=== PATIENT | female | born 1945 | race Caucasian/White ===

== ENCOUNTER 2017-11-01 04:05 | Emergency (ER) | payer OTHER ==
[~2017-11-01] VITALS: Ht 152.4 cm; Wt 108.9 kg
[~2017-11-01 04:05] MED LIST: ASPIRIN81 M2 PO; BAYER CHEWABLE81 MG PO; BIOTIN2500 MCG PO; CALTRATE-600 W1 EACH; CARDIZEM CD 18180 M3; CENTRUM SILVER1 EAC4 PO; COLACE 100 MG100 MG PO; CYCLOBENZAPRINE; CYMBALTA60 MG; CYMBALTA60 MG PO; DILTIAZEM ER240 M1; FLEXERIL; HYDROCHLOROTHIA25 M1 PO; HYDROCHLOROTHIA25 M2 PO; HYDROCODON-ACE1 EAC7; HYDROCODONE-AP1 EAC6 PO; IBUPROFEN 600600 M1 PO; LEVOTHYROXIN0.025 MG; LEVOTHYROXIN0.125 M1 PO; LIORESAL 10 MG10 MG PO; LISINOPRIL; LISINOPRIL20 MG; MIRALAX17 GM PO; MOBIC15 MG PO; MORPHINE PO; MS CONTIN 30 MG30 M1 PO; NAPROXEN DELAY500 M1 PO; NAPROXEN SODIU220 M2 PO; NEURONTIN 300300 M1 PO; NORCO 10-325 T1 EACH PO; NORCO 5-325 TA1 EACH PO; POTASSIUM20 OR; PRINIVIL40 MG PO; PROZAC40 MG; REQUIP 1 MG TABL1 M1 PO; VICODIN; XARELTO20 MG PO; ZOFRAN4 MG PO
[2017-11-01] MEDS ORDERED: CEREFOLIN TABL1 EAC1 PO (04:21)
[2017-11-01] MEDS ORDERED: OSTERA TABLET1 EAC1 PO (04:21)
[2017-11-01] MEDS ORDERED: AUGMENTIN 875-1 EACH PO (04:55)
[2017-11-01 05:12] VITALS: BP 156/107
== END 2017-11-01 05:15 | disposition home or self-care (01) ==
LOC: M.ERS 04:05
DX: J02.9 Acute pharyngitis, unspecified (principal); I10 Essential (primary) hypertension; F32.9 Major depressive disorder, single episode, unspecified; M19.90 Unspecified osteoarthritis, unspecified site; Z90.710 Acquired absence of both cervix and uterus; Z88.8 Allergy status to other drugs, medicaments and biological substances

== ENCOUNTER → 2017-12-31 | Outpatient (CLI) | payer OTHER ==
[~2017-12-31] MED LIST changes: +AUGMENTIN 875-1 EACH PO; +CEREFOLIN TABL1 EAC1 PO; +OSTERA TABLET1 EAC1 PO
== END ==
LOC: M.ULTRA 07:27
DX: E04.1 Nontoxic single thyroid nodule (principal); E21.3 Hyperparathyroidism, unspecified; M81.0 Age-related osteoporosis without current pathological fracture; I10 Essential (primary) hypertension; E78.4 Other hyperlipidemia

== ENCOUNTER → 2018-01-12 | Outpatient (CLI) | payer OTHER | LOC: M.LAB 01-08 12:00 → M.CT 01-08 13:00 → M.LAB 08:00 → M.CT 09:00 | DX: E04.1 Nontoxic single thyroid nodule (principal); E21.3 Hyperparathyroidism, unspecified; E03.9 Hypothyroidism, unspecified; I10 Essential (primary) hypertension; M81.0 Age-related osteoporosis without current pathological fracture; E78.4 Other hyperlipidemia ==

== ENCOUNTER 2018-04-17 19:19 | Emergency (ER) | payer OTHER ==
[~2018-04-17] VITALS: Ht 152.4 cm; Wt 68.0 kg
[2018-04-17] MEDS ORDERED: KRILL OIL 5001 EACH PO (19:30)
[2018-04-17] MEDS ORDERED: TIROSINT25 MCG (19:31)
[2018-04-17] MEDS ORDERED: NORCO 7.5-3251 EACH PO (20:00)
[2018-04-17 20:40] VITALS: BP 177/97
[2018-04-20] MEDS ORDERED: NORCO 10-325 T1 EACH PO (10:13)
[2018-04-20] MEDS ORDERED: SYNTHROID50 MCG PO (10:15)
== END 2018-04-17 20:41 | disposition home or self-care (01) ==
LOC: M.ERS 19:19
DX: S52.591A Other fractures of lower end of right radius, initial encounter for closed fracture (principal); S52.691A Other fracture of lower end of right ulna, initial encounter for closed fracture; M41.9 Scoliosis, unspecified; I10 Essential (primary) hypertension; F32.9 Major depressive disorder, single episode, unspecified; G25.81 Restless legs syndrome; M19.90 Unspecified osteoarthritis, unspecified site; M79.7 Fibromyalgia; Z90.710 Acquired absence of both cervix and uterus; Z90.49 Acquired absence of other specified parts of digestive tract; Z86.718 Personal history of other venous thrombosis and embolism; W01.0XXA Fall on same level from slipping, tripping and stumbling without subsequent striking against object, initial encounter; Y93.89 Activity, other specified; Y92.89 Other specified places as the place of occurrence of the external cause; Y99.8 Other external cause status

== ENCOUNTER 2018-04-21 09:11 | Inpatient (IN) | payer OTHER ==
[~2018-04-21] VITALS: Ht 152.4 cm; Wt 110.7 kg
--- NOTE | ~2018-04-21 | OP ---
[address] [address] OPERATIVE REPORT Name: NITIN URBINA Room: [address]#: [id number] Admission: 04/21/18 Attend Phys: Harry Gonzales MD Discharge: 04/23/18 Date of : 41 Report #: [id number] THIS REPORT FOR: //name// CC: Rad Gonzales DATE OF SERVICE: 04/22/2018 PREOPERATIVE DIAGNOSIS: Right distal radius fracture, greater than 3 parts. POSTOPERATIVE DIAGNOSIS: Right distal radius fracture, greater than 3 parts. PROCEDURE: Open reduction and internal fixation of right distal radius fracture, greater than 3 parts. SURGEON: Rad Poe II, DO HOUSEKEEPER HEAD: TODD Green. ANESTHESIA: LMA. ESTIMATED BLOOD LOSS: Minimal. ANTIBIOTICS: Per operative record. DRAINS: None. COMPLICATIONS: None. CONDITION OF THE PATIENT: Stable to recovery room. DESCRIPTION OF PROCEDURE: The patient was taken to the operative suite and placed supine on the OR table and given appropriate anesthesia. The patient had a well-padded tourniquet applied to the upper extremity, which inflated to 250 mmHg after Esmarch exsanguination for the duration of procedure. The arm was sterilely prepped and draped. Surgery began by an incision of the flexor carpi radialis tendon on the right forearm. This was carried down through subcutaneous tissues. The fracture was then visualized with being in multiple comminuted parts, which extended around to the ulnar margin. These were manipulated back into place in an open reduction and then secured utilizing a K-wire. The appropriate size plate was then visualized with C-arm and selected. It was then held with K-wire onto the bone to check for appropriate volar tilt and radial inclination. Once this was found to be near anatomic, the plate was secured to the proximal shaft in the sliding hole and once again reduced in near anatomic fashion and at this time, the screws [place] [address] OPERATIVE REPORT Name: NITIN URBINA Room: [address] IN [facility].#: [id number] Admission: 04/21/18 Attend Phys: Harry Gonzales MD Discharge: 04/23/18 Date of : 41 Report #: [id number] distal and proximal portions to secure the fracture site. Final irrigation was then performed. Final images were taken of the C-arm showed excellent anatomic reduction and anatomic fixation of the distal radius fracture with multiple comminuted parts back into near anatomic position. Wound was then irrigated and closed utilizing a 2-0 Vicryl for the subcuticular layer and running Monocryl stitch for the skin. Dermabond and sterile dressing and a volar splint were then applied. Tourniquet was deflated, and the patient was transported to recovery room in stable condition. Counts were correct throughout the procedure. By: [id number] Poe II, DO /nt
[~2018-04-21 09:11] MED LIST changes: +KRILL OIL 5001 EACH PO; +NORCO 7.5-3251 EACH PO; +SYNTHROID50 MCG PO; +TIROSINT25 MCG
[2018-04-21 09:25] VITALS: BP 175/123
[2018-04-21 10:16] LABS: HEMATOCRIT 46.5 % (37.0-47.0); HEMOGLOBIN 15.5 gm/dL (12.0-15.0); MCH 29.4 pg (26.0-34.0); MCHC 33.4 g/dL (28.0-37.0); MCV 87.9 fL (80.0-100.0); MPV 8.5 fl. (7.2-11.1); RBC 5.29 mil/uL (4.20-5.00); RDW-CV 15.1 % (10.5-14.5)
[2018-04-21 10:23] LABS: CALCIUM 9.9 mg/dL (8.5-10.1); POTASSIUM 3.2 mmol/L (3.5-5.1)
[2018-04-21 10:27] LABS: ALBUMIN 3.2 g/dL (3.4-5.0); TOTAL BILIRUBIN 0.6 mg/dL (<0.1-1.0); TOTAL PROTEIN 6.9 g/dL (6.4-8.2)
--- NOTE | 2018-04-21 11:46 | NUR ---
Paged Dr. Gonzales for admission.
--- NOTE | 2018-04-21 11:47 | EKG ---
[place] [address] ELECTROCARDIOGRAM REPORT Name: NITIN URBINA Room: [facility]#: [id number] Admission: 04/21/18 Attend Phys: Rad Poe II Discharge: Date of : 41 Report #: [id number] THIS REPORT FOR: //name// Test Date: 2018-04-21 Test Time: 10:00:00 Pat Name: NITIN URBINA Department: Room: Gender: F Math Professor: : 1945 Requested By: Rad Poe Order Number: [id number] Reading MD: Altaf Norris Measurements Intervals M[place]ick Rate: 93 P: DC: QRS: 64 QRSD: 107 T: 55 QT: 347 QTc: 432 Interpretive Statements Atrial fibrillation Borderline T wave abnormalities Electronically Signed On 04-21-2018 11:47:22 SCHOOL STANDARDS COACH by Altaf Norris [email or web address] <ELECTRONICALLY SIGNED> By: Altaf Norris MD, [facility] 04/21/18 1147 1000 [facility] Altaf Norris MD, FACC /EPI
--- NOTE | 2018-04-21 11:55 | NUR ---
Returned call from Dr. Gonzales, orders to admit to Tele floor given.
--- NOTE | 2018-04-21 12:20 | NUR ---
Pt c/o pain in right arm. Home med of Hydrocodone 10/325 1 1/2 tablets given PO for pain.
--- NOTE | 2018-04-21 12:45 | NUR ---
Dr. Gonzales called back and requeted a Cardiology consult be placed. Pt is in A-flutter on the moniter at this time.
--- NOTE | 2018-04-21 12:48 | NUR ---
Called Dr Mayer office and message left on Kaykay' answering machine and consult placed in computer.
[2018-04-21 13:00] VITALS: BP 133/96
--- NOTE | 2018-04-21 14:13 | NUR ---
Call returned by Dalila for Dr. Norris who stated he is already out of the hospital for today and might return tonght or will be early tomorrow morning. Explained to her situation of patient having new onset of A-fibb/flutter and is scheduled for Surgical fixation of her right radius fracture at 1530 if cleared by cardiology. Also told her of patients history of blood clots.
--- NOTE | 2018-04-21 14:20 | NUR ---
Pt taken up to room 229 via cart. Pt transfered to recliner with 1x assist. Report given to Krysten ALVARENGA.
--- NOTE | 2018-04-21 14:30 | NUR ---
PT ARRIVED TO UNIT VIA CART. PT ORIENTED TO ROOM,CALL LIGHT WITHIN REACH. PT SITTING IN CHAIR. RIGHT ARM ELEVATED ON PILLOW. DENIES PAIN. AFIB ON MONITOR
--- NOTE | 2018-04-21 18:20 | NUR ---
PT UP TO FLOOR THIS EVENING. PT REPORTS PAIN CONTROLLED WITH PO MEDS. SPLINT TO RUE INTACT. PT UP IN ROOM WITH STEADY GAIT. AFIB RATE CONTROLLED IN 80S. PLAN FOR OR IN AM
[2018-04-21 20:00] VITALS: BP 114/80
[2018-04-22] VITALS: BP 150/81
--- NOTE | 2018-04-22 02:23 | NUR ---
RECIEVED REPORT AND ASSUMED CARE AT 1900. FISH BAIT PICKER IN PLACE. VITAL SIGNS STABLE. PT UP ADLIB AND ON RA. PT HAS PAIN IN RIGHT ARM AND PRN PAIN MEDS GIVEN ORDERED. ASSESSMENT COMPLETED AND DISCUSSED PLAN OF CARE AND PT UNDERSTANDS. BED LOCKED AND CALL LIGHT WITHIN REACH. FALL PRECAUTIONS IN PLACE. HOURLY ROUNDING COMPLETED AND ALL NEEDS MET. NURSING WILL CONTINUE TO MONITOR.
[2018-04-22 04:00] VITALS: BP 145/84
[2018-04-22 05:01] LABS: HEMATOCRIT 41.9 % (37.0-47.0); HEMOGLOBIN 13.9 gm/dL (12.0-15.0); MCH 29.1 pg (26.0-34.0); MCHC 33.2 g/dL (28.0-37.0); MCV 87.7 fL (80.0-100.0); MPV 8.3 fl. (7.2-11.1); RBC 4.77 mil/uL (4.20-5.00); RDW-CV 15.1 % (10.5-14.5); WBC 6.6 thou/uL (4.0-11.0)
[2018-04-22 05:08] LABS: CALCIUM 9.7 mg/dL (8.5-10.1); MAGNESIUM 1.9 mg/dL (1.8-2.4); POTASSIUM 3.9 mmol/L (3.5-5.1)
[2018-04-22 08:00] VITALS: BP 150/104
--- NOTE | 2018-04-22 08:00 | NUR ---
ASSUMED CARE OF PT AT 0730. PT RESTING IN BED. PT A&0X4, PT COMPLAINS OF PAIN TO RIGHT WRIST BUT DENIES NEED FOR PAIN MEDICATION STATING PAIN MED BY NOC SHIFT THIS AM HELPED. 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 CARDIOLOGY CLEARED PT FOR SURGERY TODAY- PT TO HAVE ORIF OF RIGHT WRIST. CONSENT SIGNED AND PLACED IN FRONT OF CHART. RATE CONTROLLED IN THE 70'S-80'S. PT ON RA SAT UPPER 90'S. DENIES ANY SHORTNESS OF BREATH. PT UP SBA TO BATHROOM. URINALYSIS OBTAINED AND SENT TO LAB. PT NPO FOR SURGERY. PT GOAL FOR TODAY IS TO PAIN MGMT, SURGERY AND MONITOR EKG. AM ASSESSMENT CHARTED. MEDICATIONS PER JUL. PT REPOSITIONS SELF. HOURLY ROUNDING OBSERVED. BED IN LOW POSITION. CALL LIGHT WITHIN REACH. WILL CONTINUE PLAN OF CARE.
[2018-04-22 09:56] VITALS: BP 150/104
[2018-04-22 10:05] LABS: URINE BILIRUBIN NEGATIVE (Negative); URINE BLOOD NEGATIVE (Negative); URINE CLARITY CLEAR; URINE COLOR YELLOW; URINE GLUCOSE-RANDOM NEGATIVE (Negative); URINE KETONES NEGATIVE (Negative); URINE LEUKOCYTES-REFLEX NEGATIVE (Negative); URINE NITRITE-REFLEX NEGATIVE (Negative); URINE PROTEIN NEGATIVE (Negative); URINE UROBILINOGEN 0.2 E.U./dl (0.2-1.0)
[2018-04-22 11:37] VITALS: BP 163/88
--- NOTE | 2018-04-22 12:00 | NUR ---
MET WITH PT TO DISCUSS HOME SITUATION/DC PLANNING. PT LIVES ALONE, HAS SUPPORTIVE FAMILY AND IS INDEPENDENT. STATES FX HER WRIST AT HER DTR'S HOME GETTING PACKAGES OFF P[employer]CH. SHE HAS BEEN MANAGING AT HOME WITH IT PRIOR TO ADMIT AND DENIES NEEDS AFTER. HER DTRS CAN ASSIST HER. PT WILL HAVE TO GO HOME ON XARELTO, WAS ASKED TO CHECK COST BY DR HEDRICK. CALLED INTO BRIT XARELTO 20MG DAILY, COPAY IS $47/MONTH. SCRIPT IS ON HOLD. CM TO FOLLOW
--- NOTE | 2018-04-22 14:38 | 2DMMODE ---
[place] [address] 2 D/M-MODE ECHOCARDIOGRAM Name: NITIN URBINA Room: [address] ADM IN [facility]#: [id number] Admission: 04/21/18 Attend Phys: Harry Gonzales MD Discharge: Date of : 41 Date of Service: 04/22/18 1437 Report #: [id number] THIS REPORT FOR: //name// APPROVED REPORT Study performed: 04/22/2018 10:29:06 EXAM: Comprehensive 2D, Doppler, and color-flow Echocardiogram Patient Location: In-Patient Room #: 229 Status: routine BSA: 2.03 HR: 73 bpm BP: 150/104 mmHg Rhythm: Atrial Fibrillation Other Information Study Quality: Fair Indications Atrial Fibrillation 2D Dimensions IVSd: 13.50 (7-11mm) LVOT Diam: 19.58 (18-24mm) LVDd: 39.95 mm PWd: 11.58 (7-11mm) Ascending Ao: 34.03 (22-36mm) LVDs: 23.38 (25-40mm) Volumes Left Atrial Volume (Systole) LA ESV Index: 39.40 mL/m2 Aortic Valve AoV Peak Luis Enrique.: 1.68 m/s AO Peak Gr.: 11.34 mmHg LVOT Max P.54 mmHg AO Mean Gr.: 6.15 mmHg LVOT Mean P.83 mmHg LVOT Max V: 0.94 m/s AO V2 VTI: 27.31 cm LVOT Mean V: 0.62 m/s SERINA (VTI): 1.95 cm2 LVOT V1 VTI: 17.72 cm Mitral Valve MV Decel. Time: 202.01 ms MV PHT: 58.58 ms MVA (PHT): 3.76 cm2 [place] [address] 2 D/M-MODE ECHOCARDIOGRAM Name: NITIN URBINA Room: [address]#: [id number] Admission: 04/21/18 Attend Phys: Harry Gonazles MD Discharge: Date of : 41 Date of Service: 04/22/18 1437 Report #: [id number] TDI Medial E' Luis Enrique.: 0.12 m/s Lateral E' Luis Enrique.: 0.08 m/s Pulmonary Valve PV Peak Luis Enrique.: 0.82 m/s PV Peak Gr.: 2.68 mmHg Tricuspid Valve RAP Estimate: 5.00 mmHg TR Peak Gr.: 14.92 mmHg RVSP: 20.00 mmHg PA Pressure: 20.00 mmHg Left Ventricle The left ventricle is normal size. There is normal LV segmental wall motion. Mild concentric left ventricular hypertrophy. Left ventricular systolic function is normal. The left ventricular ejection fraction is within the normal range. LVEF is 60-65%. This study is not technically sufficient to allow evaluation of the LV diastolic function due to atrial fibrillation. Right Ventricle The right ventricle is normal size. The right ventricular systolic function is normal. Atria Left atrium is mildly dilated. Right atrium is mildly dilated. Aortic Valve The aortic valve is normal in structure. No aortic regurgitation is present. There is no aortic valvular stenosis. Mitral Valve There is mitral annular calcification. Trace mitral regurgitation. No evidence of mitral valve stenosis. Tricuspid Valve The tricuspid valve is normal in structure. Trace tricuspid regurgitation. No pulmonary hypertension. Pulmonic Valve The pulmonary valve is normal in structure. There is no pulmonic valvular regurgitation. Great Vessels The aortic root is normal in size. IVC is [place] [address] 2 D/M-MODE ECHOCARDIOGRAM Name: NITIN URBINA Room: [address]#: [id number] Admission: 04/21/18 Attend Phys: Harry Gonzales MD Discharge: Date of : 41 Date of Service: 04/22/18 1437 Report #: [id number] collapses >50% with inspiration. Pericardium There is no pericardial effusion. <Conclusion> Mild concentric left ventricular hypertrophy. LVEF is 60-65%. Left atrium is mildly dilated. Right atrium is mildly dilated. <ELECTRONICALLY SIGNED> By: Altaf Norris MD, FACC 04/22/18 1437 143 143 Altaf Norris MD, FACC /INF
--- NOTE | 2018-04-22 18:20 | NUR ---
NO ACUTE CHANGES THROUGHOUT SHIFT. REFER TO CHARTING. PT RETURNED FROM SURGERY AT APPROXIMATELY 1820. ORIF TO RIGHT WRIST COMPLETED. PT CURRENTLY EATING DINNER AT THIS TIME. DENIES ANY PAIN OR SHORTNESS OF BREATH AT THIS TIME. MEDICATIONS PER JUL. PT REPOSITIONS SELF. HOURLY ROUNDING OBSERVED. BED IN LOW POSITION. FALL PREACUTIONS IN PLACE. CALL LIGHT WITHIN REACH. WILL CONTINUE PLAN OF CARE.
[2018-04-22 20:00] VITALS: BP 146/103
[2018-04-23] VITALS (11 sets, daily range): BP systolic 154–190; BP diastolic 78–100
--- NOTE | 2018-04-23 06:32 | NUR ---
PATIENT PARTIALLY PROGRESSING TOWARDS GOALS: PATIENT'S PAIN IN RIGHT WRIST PARTIALLY RELIEVED WITH ICE PACK AND AND PO PAIN MEDICATION. PATIENT'S BLOOD PRESSURE ELEVATED AT TIMES BUT RETURNS WNL AT REST AND WITH PAIN RELIEF EFFORTS. HOURLY ROUNDING OBSERVED. CALL LIGHT WITHIN REACH
[2018-04-23] MEDS ORDERED: XARELTO20 MG PO (11:39)
--- NOTE | 2018-04-23 13:52 | NUR ---
MET WITH PT AND DTR, UPDATED PT AND DR HEDRICK ON COST OF XARELTO PT DENIES ANY DC NEEDS. [facility] HAS GOOD FAMILY SUPPORT.
[2018-04-23] MEDS ORDERED: KLOR-CON 1010 MEQ PO (14:03)
--- NOTE | 2018-04-23 16:29 | NUR ---
PATIENT IS ALERT AND ORIENTED TODAY VERY PLEASANT. UP AD TALI IN ROOM. VITAL SIGNS STABLE ON ROOM AIR. SOME PAIN THAT IS SOMEWHAT CONTROLLED BY ORAL PAIN MEDICATIONS. APPETITE IS GOOD. PATIENT IS BEING DISCHARGED TO HOME WITH HOME HEALTH. DISCHARGE INSTRUCTIONS AND PRESCRIPTIONS GIVEN TO PATIENT. QUESTIONS ANSWERED FOR PATIENT AND DAUGHTER, LEFT VIA WHEELCHAIR TO HOME WITH DAUGHTER.
--- NOTE | 2018-04-23 17:22 | CON ---
[address] [address] CONSULTATION Name: NITIN URBINA Room: [address] IN .R.#: [id number] Admission: 04/21/18 Attend Phys: Harry Gonzales MD Discharge: 04/23/18 Date of : 41 Report #: [id number] THIS REPORT FOR: //name// CC: Dr. Modesto Delaney Patient's Chart Rad Poe Modesto Gonzales DATE OF SERVICE: 04/21/2018 CARDIOLOGY CONSULTATION PRIMARY CARE PHYSICIAN: Dr. Modesto Delaney. HISTORY OF PRESENT ILLNESS: The patient is a 72-year-old single white female who I was asked to see in the hospital today after she was noted to be in atrial fibrillation. The patient has no previous history of heart disease. She has had no previous cardiac evaluation. She does have a long history of hypertension. She was doing well until 5 days ago, she was at her daughter's house when she slipped and fell on the driveway. She fractured her right arm. She was seen in the Emergency Room and sent home. A cast was placed. She returned today to undergo outpatient surgery on her broken arm. In preop surgery, she was noted to be in atrial fibrillation. Cardiology consultation was requested. She is not very active because of her large size. She is 5 feet tall and weighs 245 pounds. She notes she previously weighed up to 300 pounds. However, she denies history of myocardial infarction, chest pain, dyspnea on exertion. She does have occasional sweating spells. She also has occasional lightheadedness, but no palpitations or syncope. She denies a history of heart murmur. PAST MEDICAL HISTORY: She has had previous hemicolectomy for diverticular disease. She had a colostomy of several months. She has had several hernia surgeries. She has had a hysterectomy and cholecystectomy. She has hypertension. She has been told in the past she has elevated cholesterol. MEDICATIONS: Include Cymbalta, hydrochlorothiazide, hydrocodone, levothyroxine and lisinopril. ALLERGIES: She has intolerance to NEURONTIN. FAMILY HISTORY: Negative for heart disease. SOCIAL HISTORY: She is . Lives by herself in [place], [place]. 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 No [place] [address] CONSULTATION Name: NITIN URBINA Room: [address]#: [id number] Admission: 04/21/18 Attend Phys: Harry Gonzales MD Discharge: 04/23/18 Date of : 41 Report #: [id number] REVIEW OF SYSTEMS: She has had no history of sleep apnea. No history of stroke, asthma, peptic ulcer disease. She apparently had hepatitis B in the past. No kidney disease. She has a history of skin cancer removal. No psychiatric illness. PHYSICAL EXAMINATION: GENERAL: A large, elderly female lying in bed. She appeared in no distress. VITAL SIGNS: Showed a blood pressure of 160/90, pulse is 90 and irregular. She is afebrile. HEENT: She was anicteric, conjunctiva pink. Mucous membranes moist. NECK: Veins were difficult to assess due to obesity. No carotid bruits. Neck is supple. CHEST: Clear to auscultation. CARDIOVASCULAR: Irregular rhythm. No significant murmur. ABDOMEN: Obese. EXTREMITIES: Had no pitting edema. Dorsalis pedis pulse 1+ bilaterally. SKIN: Warm, dry. NEUROLOGIC: Nonfocal. LYMPH: No adenopathy. MUSCULOSKELETAL: No joint effusion. Her ECG from today appears to show atrial fibrillation with controlled ventricular response rate, nonspecific T-wave changes. The patient had a previous rhythm strip from 06/2015 that showed a sinus rhythm. ECG from 06/22 when she came in with the fractured arm actually showed a sinus bradycardia, occasional PAC. There appeared to be occasional junctional escape beat. Her workup, she had a previous echocardiogram in 2012 that showed ejection fraction of 60%. Her nuclear stress test in 2012 was performed using Lexiscan and showed no evidence of ischemia with an ejection fraction of 68%. Workup today, she actually had a portable chest x-ray that showed normal heart size, clear lung dominguez, dextroscoliosis, scattered granulomas. LABORATORY DATA: Today, sodium 141, potassium 3.2, creatinine 1.0. Liver function studies were normal. In the past, she had an LDL of 148. TSH today is 1.9. White blood cell count 8.0, hemoglobin 15.5. IMPRESSION AND RECOMMENDATIONS: 1. Atrial fibrillation. Asymptomatic. Certainly occurred since 4 days ago. I suspect the patient has sick sinus syndrome since the rate is controlled despite the fact she is on no medication to control the ventricular response rate. At this time, I would not recommend attempts at cardioversion. After surgery on her fractured arm, I would recommend anticoagulation. 2. Arm fracture. The patient appears to have no cardiac contraindication to surgery. I would recommend no further cardiac evaluation prior to surgery. 3. Hypertension. The patient has been on an JANET inhibitor and diuretic. 4. Hyperlipidemia. [address] [address] CONSULTATION Name: NITIN URBINA Room: [address] IN [facility]#: [id number] Admission: 04/21/18 Attend Phys: Harry Gonzales MD Discharge: 04/23/18 Date of : 41 Report #: [id number] 5. History of hepatitis B. 6. Morbid obesity. The patient is not very active. <ELECTRONICALLY SIGNED> By: Altaf Norris MD, FACC 04/23/18 1722 1803 1838Altaf Norris MD, FACC /nt
== END 2018-04-23 16:32 | disposition home health service (06) | DRG 511 ==
LOC: M.SUR 09:11 → M.TBA 12:45 → M.2W 12:45 → M.TBA 12:45 → M.SUR 13:10 → M.2W 14:36 → M.SUR 15:44 → M.2W 04-23 16:32
PROVIDERS: Orthopaedic Surgery; ADMIT Family Medicine
PROC: 0PSH04Z Reposition Right Radius with Internal Fixation Device, Open Approach (ICD-10-PCS; principal; 2018-04-22)
DX: S62.101A Fracture of unspecified carpal bone, right wrist, initial encounter for closed fracture (principal); Z68.42 Body mass index [BMI] 45.0-49.9, adult; I48.91 Unspecified atrial fibrillation; E78.5 Hyperlipidemia, unspecified; E66.01 Morbid (severe) obesity due to excess calories; G25.81 Restless legs syndrome; M19.90 Unspecified osteoarthritis, unspecified site; G89.29 Other chronic pain; M79.7 Fibromyalgia; E03.9 Hypothyroidism, unspecified; I10 Essential (primary) hypertension; Z93.3 Colostomy status; Z90.49 Acquired absence of other specified parts of digestive tract; Z88.8 Allergy status to other drugs, medicaments and biological substances; Z86.19 Personal history of other infectious and parasitic diseases; Z86.718 Personal history of other venous thrombosis and embolism; Z86.711 Personal history of pulmonary embolism; Z83.3 Family history of diabetes mellitus; Z80.1 Family history of malignant neoplasm of trachea, bronchus and lung; W01.0XXA Fall on same level from slipping, tripping and stumbling without subsequent striking against object, initial encounter; Y93.89 Activity, other specified; Y92.098 Other place in other non-institutional residence as the place of occurrence of the external cause; Y99.8 Other external cause status; Z79.899 Other long term (current) drug therapy

== ENCOUNTER → 2018-06-04 | Outpatient (CLI) | payer OTHER ==
[~2018-06-04] MED LIST changes: +KLOR-CON 1010 MEQ PO
== END ==
LOC: M.RAD 11:08
DX: Z12.31 Encounter for screening mammogram for malignant neoplasm of breast (principal)

== ENCOUNTER 2018-07-19 09:34 | Emergency (ER) | payer OTHER ==
[~2018-07-19] VITALS: Ht 162.6 cm; Wt 110.7 kg
[2018-07-19 12:15] VITALS: BP 151/99
== END 2018-07-19 12:16 | disposition home or self-care (01) ==
LOC: M.ERS 09:34
DX: S62.617A Displaced fracture of proximal phalanx of left little finger, initial encounter for closed fracture (principal); M25.561 Pain in right knee; M41.9 Scoliosis, unspecified; I10 Essential (primary) hypertension; F32.9 Major depressive disorder, single episode, unspecified; G25.81 Restless legs syndrome; I48.91 Unspecified atrial fibrillation; M19.90 Unspecified osteoarthritis, unspecified site; M79.7 Fibromyalgia; Z90.710 Acquired absence of both cervix and uterus; Z90.49 Acquired absence of other specified parts of digestive tract; Z88.8 Allergy status to other drugs, medicaments and biological substances; Z90.13 Acquired absence of bilateral breasts and nipples; Z86.718 Personal history of other venous thrombosis and embolism; W18.39XA Other fall on same level, initial encounter; Y92.89 Other specified places as the place of occurrence of the external cause; Y93.89 Activity, other specified; Y99.8 Other external cause status

== ENCOUNTER → 2018-08-02 | Outpatient (CLI) | payer OTHER | LOC: M.RAD 07-29 09:00 | DX: M85.89 Other specified disorders of bone density and structure, multiple sites (principal); E28.39 Other primary ovarian failure; Z78.0 Asymptomatic menopausal state; Z88.8 Allergy status to other drugs, medicaments and biological substances ==

== ENCOUNTER → 2019-02-28 | Outpatient (CLI) | payer OTHER ==
[~2019-02-28] MED LIST changes: +CARVEDILOL12.5 MG PO; +LORCET 5-325 M1 EACH PO
== END ==
LOC: M.LAB 12-21 09:18 → M.MRI 12-31 12:30 → M.LAB 14:00
DX: M47.12 Other spondylosis with myelopathy, cervical region (principal); M50.01 Cervical disc disorder with myelopathy, high cervical region; M46.02 Spinal enthesopathy, cervical region; G95.9 Disease of spinal cord, unspecified; E55.9 Vitamin D deficiency, unspecified; R53.83 Other fatigue; R90.82 White matter disease, unspecified; X58.XXXA Exposure to other specified factors, initial encounter

== ENCOUNTER → 2019-03-16 | Outpatient (CLI) | payer OTHER ==
[~2019-03-16] VITALS: Ht 157.5 cm; Wt 114.8 kg
[2019-03-16 15:59] LABS: ABSOLUTE BASOPHILS 0.1 thou/uL (0.0-0.2); ABSOLUTE EOSINOPHILS 0.3 thou/uL (0.0-0.7); ABSOLUTE LYMPHOCYTES 2.4 thou/uL (0.8-5.3); ABSOLUTE MONOCYTES 0.5 thou/uL (0.0-1.2); BASOPHILS 0.9 %; EOSINOPHILS 3.7 %; HEMATOCRIT 45.5 % (37.0-47.0); HEMOGLOBIN 15.2 gm/dL (12.0-15.0); LYMPHOCYTES 29.2 %; MCH 29.6 pg (26.0-34.0); MCHC 33.4 g/dL (28.0-37.0); MCV 88.5 fL (80.0-100.0); MONOCYTES 5.8 %; MPV 8.3 fl. (7.2-11.1); NUCLEATED RBCS 0 /100WBC; PLATELET COUNT* 240 thou/uL (150-400); POLYS 60.4 %; RBC 5.14 mil/uL (4.20-5.00); WBC 8.3 thou/uL (4.0-11.0)
[2019-03-16 16:09] LABS: CALCIUM 9.9 mg/dL (8.5-10.1); CREATININE 1.2 mg/dL (0.6-1.3); POTASSIUM 3.8 mmol/L (3.5-5.1)
[2019-03-16 16:17] LABS: ALBUMIN 3.7 g/dL (3.4-5.0); TOTAL BILIRUBIN 0.3 mg/dL (<0.1-1.0); TOTAL PROTEIN 7.5 g/dL (6.4-8.2)
[2019-03-16 17:03] VITALS: BP 169/89
--- NOTE | 2019-03-17 11:06 | EKG ---
[place] [address] ELECTROCARDIOGRAM REPORT Name: NITIN URBINA Room: [facility]#: [id number] Admission: 03/16/19 Attend Phys: Varun Joe MD Discharge: Date of : 41 Report #: [id number] THIS REPORT FOR: //name// ED Test Date: 2019-03-16 Test Time: 15:55:28 Pat Name: NITIN URBINA Department: Room: Gender: F Plush Dresser: [facility] : 1945 Requested By: Slick Glover Order Number: [id number] MD: Jaiden Nino Measurements Intervals Bryan Rate: 83 P: [place]: QRS: 70 QRSD: 100 T: -1 QT: 382 QTc: 449 Interpretive Statements Atrial fibrillation Borderline T abnormalities, inferior leads Compared to ECG 04/22/2018 08:29:23 No significant changes Electronically Signed On 03-17-2019 11:06:03 PRECISION FILER HAND by Jaiden Nino [email or web address] <ELECTRONICALLY SIGNED> By: Jaiden Nino MD, [facility] 03/17/19 1106 1555 1555 Jaiden Nino MD, FACC /EPI
== END ==
LOC: M.RAD 03:23 → M.PC 03:23 → M.ERS 03:23 → M.PC 14:30
PROVIDERS: Physician Assistant
DX: M17.11 Unilateral primary osteoarthritis, right knee (principal); I51.7 Cardiomegaly; M79.18 Myalgia, other site

== ENCOUNTER 2019-04-15 14:34 | Emergency (ER) | payer OTHER ==
[~2019-04-15] VITALS: Ht 152.4 cm; Wt 113.4 kg
[2019-04-15 14:51] VITALS: BP 124/89
[2019-04-15] MEDS ORDERED: PREDNISONE 20 M20 M1 PO ×2 (15:07→15:09)
== END 2019-04-15 15:19 | disposition home or self-care (01) ==
LOC: M.ERS 14:34
DX: M25.561 Pain in right knee (principal); I10 Essential (primary) hypertension; M19.90 Unspecified osteoarthritis, unspecified site; M79.7 Fibromyalgia; G89.29 Other chronic pain; G25.81 Restless legs syndrome; Z90.49 Acquired absence of other specified parts of digestive tract; Z88.8 Allergy status to other drugs, medicaments and biological substances

== ENCOUNTER → 2019-04-20 | Outpatient (CLI) | payer OTHER ==
[~2019-04-20] MED LIST changes: +PREDNISONE 20 M20 M1 PO
== END ==
LOC: M.PC 05:17
DX: M17.0 Bilateral primary osteoarthritis of knee (principal); M79.7 Fibromyalgia

== ENCOUNTER 2019-04-22 14:36 | Emergency (ER) | payer OTHER ==
[~2019-04-22] VITALS: Ht 152.4 cm; Wt 113.0 kg
[2019-04-22 16:24] LABS: CALCIUM 9.7 mg/dL (8.5-10.1); POTASSIUM 3.9 mmol/L (3.5-5.1)
[2019-04-22 16:57] VITALS: BP 131/83
--- NOTE | 2019-04-23 14:47 | EKG ---
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: : 1945 Requested By: Georgi Corral Order Number: [id number] MD: Jaiden Nino Measurements Intervals [place] Rate: 81 P: VT: QRS: 94 QRSD: 102 T: 32 QT: 369 QTc: 429 Interpretive Statements Atrial fibrillation Right axis deviation Compared to ECG 03/16/2019 15:55:28 Right-axis deviation now present T-wave abnormality no longer present Electronically Signed On 04-23-2019 14:47:35 CYANIDE POT TENDER by Jaiden Nino [email or web address] <ELECTRONICALLY SIGNED> By: Jaiden Nino MD, [facility] 04/23/19 1447 1557 1557 Jaiden Nino MD, FACC /EPI
== END 2019-04-22 16:58 | disposition home or self-care (01) ==
LOC: M.ERS 14:36
PROVIDERS: Emergency Medicine Emergency Medical Services
DX: I10 Essential (primary) hypertension (principal); M41.9 Scoliosis, unspecified; F32.9 Major depressive disorder, single episode, unspecified; G25.81 Restless legs syndrome; M19.90 Unspecified osteoarthritis, unspecified site; M79.7 Fibromyalgia; I48.91 Unspecified atrial fibrillation; Z86.718 Personal history of other venous thrombosis and embolism; Z90.49 Acquired absence of other specified parts of digestive tract; Z88.8 Allergy status to other drugs, medicaments and biological substances; Z90.710 Acquired absence of both cervix and uterus

== ENCOUNTER → 2019-04-27 | Outpatient (CLI) | payer OTHER | END | disposition home or self-care (01) | LOC: M.PC 05:27 | DX: M17.0 Bilateral primary osteoarthritis of knee (principal); M25.561 Pain in right knee; M25.562 Pain in left knee; I10 Essential (primary) hypertension; E78.00 Pure hypercholesterolemia, unspecified; M79.7 Fibromyalgia; F32.9 Major depressive disorder, single episode, unspecified; M19.90 Unspecified osteoarthritis, unspecified site; G89.29 Other chronic pain; I48.91 Unspecified atrial fibrillation; Z98.890 Other specified postprocedural states; Z86.711 Personal history of pulmonary embolism; Z86.718 Personal history of other venous thrombosis and embolism; Z98.0 Intestinal bypass and anastomosis status; Z90.710 Acquired absence of both cervix and uterus; Z88.8 Allergy status to other drugs, medicaments and biological substances; Z90.49 Acquired absence of other specified parts of digestive tract; Z79.01 Long term (current) use of anticoagulants ==

== ENCOUNTER → 2019-05-02 | Outpatient (CLI) | payer OTHER | END | disposition home or self-care (01) | LOC: M.PC 03:00 | DX: M17.0 Bilateral primary osteoarthritis of knee (principal); I10 Essential (primary) hypertension; I48.91 Unspecified atrial fibrillation; G89.29 Other chronic pain; M19.90 Unspecified osteoarthritis, unspecified site; F32.9 Major depressive disorder, single episode, unspecified; M79.7 Fibromyalgia; Z98.890 Other specified postprocedural states; Z98.0 Intestinal bypass and anastomosis status; Z90.710 Acquired absence of both cervix and uterus; Z88.8 Allergy status to other drugs, medicaments and biological substances; Z79.899 Other long term (current) drug therapy; Z90.49 Acquired absence of other specified parts of digestive tract; Z79.01 Long term (current) use of anticoagulants ==

== ENCOUNTER → 2019-05-09 | Outpatient (CLI) | payer OTHER | END | disposition home or self-care (01) | LOC: M.PC 04:55 | DX: M17.0 Bilateral primary osteoarthritis of knee (principal); M25.561 Pain in right knee; M25.562 Pain in left knee; I10 Essential (primary) hypertension; I48.91 Unspecified atrial fibrillation; E78.00 Pure hypercholesterolemia, unspecified; E66.01 Morbid (severe) obesity due to excess calories; Z98.890 Other specified postprocedural states; Z79.899 Other long term (current) drug therapy; Z98.0 Intestinal bypass and anastomosis status; Z90.710 Acquired absence of both cervix and uterus; Z90.49 Acquired absence of other specified parts of digestive tract; Z88.8 Allergy status to other drugs, medicaments and biological substances; Z79.01 Long term (current) use of anticoagulants ==

== ENCOUNTER 2019-07-04 18:28 | Inpatient (IN) | payer MEDICARE ==
[~2019-07-04] VITALS: Ht 157.5 cm; Wt 116.6 kg
[2019-07-04 19:01] VITALS: BP 138/115
[2019-07-04 19:43] LABS: INFLUENZA A ANTIGEN Negative (Negative); INFLUENZA B ANTIGEN Negative (Negative)
[2019-07-04 20:23] LABS: HEMATOCRIT 45.2 % (37.0-47.0); HEMOGLOBIN 15.5 gm/dL (12.0-15.0); MCH 30.2 pg (26.0-34.0); MCHC 34.2 g/dL (28.0-37.0); MCV 88.2 fL (80.0-100.0); MPV 8.2 fl. (7.2-11.1); NUCLEATED RBCS 0 /100WBC; PLATELET COUNT* 223 thou/uL (150-400); RBC 5.13 mil/uL (4.20-5.00); RDW-CV 14.1 % (10.5-14.5); WBC 12.6 thou/uL (4.0-11.0)
[2019-07-04 20:33] LABS: CALCIUM 9.8 mg/dL (8.5-10.1); CREATININE 1.3 mg/dL (0.6-1.3); POTASSIUM 3.9 mmol/L (3.5-5.1)
[2019-07-04 20:43] LABS: ALBUMIN 3.8 g/dL (3.4-5.0); TOTAL BILIRUBIN 0.7 mg/dL (<0.1-1.0); TOTAL PROTEIN 8.3 g/dL (6.4-8.2)
[2019-07-04 20:47] LABS: URINE BILIRUBIN NEGATIVE (Negative); URINE BLOOD 1+ (Negative); URINE CLARITY CLEAR; URINE COLOR YELLOW; URINE GLUCOSE-RANDOM NEGATIVE (Negative); URINE KETONES NEGATIVE (Negative); URINE LEUKOCYTES-REFLEX NEGATIVE (Negative); URINE NITRITE-REFLEX NEGATIVE (Negative); URINE PROTEIN NEGATIVE (Negative); URINE UROBILINOGEN 0.2 E.U./dl (0.2-1.0)
[2019-07-04 21:00] LABS: ABSOLUTE LYMPHOCYTES 1.3 thou/uL (0.8-5.3); ABSOLUTE NEUTROPHILS 10.7 thou/uL (1.6-8.1); PLATELET ESTIMATE ADEQUATE
[2019-07-04 21:01] LABS: ABSOLUTE EOSINOPHILS 0.4 thou/uL (0.0-0.7); ABSOLUTE MONOCYTES 0.3 thou/uL (0.0-1.2)
[2019-07-04 21:04] LABS: BACTERIA-REFLEX 1-9 Few /HPF (None Seen); CASTS None Seen /LPF (None Seen); CRYSTALS None Seen /LPF (None Seen); SQUAMOUS 0-3 Few /LPF (0-3); URINE RBC 3-10 Few /HPF (0-2); URINE WBC-REFLEX 0-5 Rare /HPF (0-5)
[2019-07-05] VITALS (7 sets, daily range): BP systolic 112–147; BP diastolic 58–98
--- NOTE | 2019-07-05 06:50 | NUR ---
RECEIVED REPORT FROM SUPERVISOR BROADLOOM DB AT 0045. PT ARRIVED TO UNIT AT 0100. NURSING ASSESSMENT COMPLETED AT START OF SHIFT. IVF INFUSING. PT VOICED NO CONCERNS AT START OF SHIFT. HIGH FALL PRECAUTIONS IN PLACE. CALL LIGHT WITHIN REACH. REAL ESTATE INTERN IN PLACE, TRACING AFIB. POSITIVE BLOOD CULTURES COMMUNICATED TO DR. ISAAC, NEW ORDERS RECEIVED.
[2019-07-05] MEDS ORDERED: KLOR-CON M2020 MEQ PO (07:08)
[2019-07-05] MEDS ORDERED: DULOXETINE HCL20 MG PO (07:09)
[2019-07-05] MEDS ORDERED: NORCO 10-325 T1 EACH PO (07:09)
--- NOTE | 2019-07-05 09:00 | NUR ---
ASSUMED CARE AFTER REPORT APPROX 0730. OX4, ABLE TO EXPRESS NEEDS TO STAFF. ASSESSMENT COMPLETE, DOCUMENTED. VS OBTAINED, DOCUMENTED. ASSISTANT TODDLER TEACHER IN PLACE, AFIB. PATIENT EXPRESSES DISTRESS IN MOANS, PATIENT STATES "I JUST FEEL AWFUL." C/O PAIN, NAUSEA. PRN MEDS GIVEN PER JUL. CALL LIGHT WITHIN REACH. HOURLY ROUNDING FOR SAFETY/PT NEEDS.
[2019-07-05 11:24] LABS: ABSOLUTE BASOPHILS 0.1 thou/uL (0.0-0.2); ABSOLUTE LYMPHOCYTES 0.9 thou/uL (0.8-5.3); ABSOLUTE MONOCYTES 0.7 thou/uL (0.0-1.2); ABSOLUTE NEUTROPHILS 11.9 thou/uL (1.6-8.1); BASOPHILS 0.8 %; EOSINOPHILS 0.3 %; HEMATOCRIT 39.3 % (37.0-47.0); LYMPHOCYTES 6.5 %; MCH 29.8 pg (26.0-34.0); MCHC 33.9 g/dL (28.0-37.0); MCV 87.8 fL (80.0-100.0); MONOCYTES 5.2 %; MPV 8.1 fl. (7.2-11.1); NUCLEATED RBCS 0 /100WBC; PLATELET COUNT* 207 thou/uL (150-400); POLYS 87.2 %; RBC 4.47 mil/uL (4.20-5.00); RDW-CV 14.3 % (10.5-14.5); WBC 13.7 thou/uL (4.0-11.0)
[2019-07-05 11:26] LABS: HEMOGLOBIN 13.3 gm/dL (12.0-15.0)
[2019-07-05 11:34] LABS: CALCIUM 9.2 mg/dL (8.5-10.1); CREATININE 1.1 mg/dL (0.6-1.3); POTASSIUM 3.5 mmol/L (3.5-5.1)
[2019-07-05 11:38] LABS: ALBUMIN 2.9 g/dL (3.4-5.0); MAGNESIUM 1.4 mg/dL (1.8-2.4); TOTAL BILIRUBIN 0.8 mg/dL (<0.1-1.0); TOTAL PROTEIN 6.8 g/dL (6.4-8.2)
--- NOTE | 2019-07-05 13:28 | NUR ---
Nutrition: Pt admitted with flu-like sx. She stated she is feeling better. RD received consult for "other." Wt: 255#, BMI 46.6. Regular diet is ordered. Pt stated she has been eating better (N/V CLINICAL EDUCATION CONSULTANT). H/o stoma removal, colon resection. BG 158, alb 2.9. RX noted. She stated her RN told her she is supposed to be NPO for a procedure, but dietary brought a tray anyway (orders are Regular diet) and pt did eat a little of it. She is hopeful to get procedure anyway today. She stated she doesn't eat as healthy as she should and wanted some info on general healthy eating. RD provided discussion and handouts on this. Pt satisfied with consult. Low nutrition risk.
--- NOTE | 2019-07-05 14:30 | NUR ---
Pt is A&O. Resides at home alone. Independent. Pt has a walker that she can use for mobility. Hx of [facility] HH. No hx of SNF. Pt's goal is home at dc, open to HH at nm if needed. Following.
--- NOTE | 2019-07-05 16:37 | EKG ---
[place] [address] ELECTROCARDIOGRAM REPORT Name: NITIN URBINA Room: [address] ADM [place] .R.#: [id number] Admission: 07/04/19 Attend Phys: Kuldeep Renteria Discharge: Date of : 41 Date of Service: 07/04/191957 Report #: [id number] THIS REPORT FOR: //name// [facility] ED Test Date: 2019-07-04 Test Time: 19:58:42 Pat Name: NITIN URBINA Department: Room: [facility] Gender: F Supervisor Braiding: ALEKS : 1945 Requested By: Rad Skaggs Order Number: [id number] MD: Altaf Norris Measurements Intervals Diana Rate: 120 P: ID: QRS: 92 QRSD: 103 T: -45 QT: 317 QTc: 448 Interpretive Statements Atrial fibrillation Nonspecific T abnormalities, inferior leads Compared to ECG 04/22/2019 15:57:46 rate increased Electronically Signed On 07-05-2019 16:35:59 CUSTOMS AGENT by Altaf Norris [email or web address] <ELECTRONICALLY SIGNED> By: Altaf Norris MD, FACC 07/05/19 1635 57 57 Altaf Norris MD, [facility] /EPI
--- NOTE | 2019-07-05 18:00 | NUR ---
PATIENT PAIN/NAUSEA RELIEVED WITH PRN MEDS. PATIENT ABLE TO REST THIS AFTERNOON AND STATES "I MUCH MORE COMFORTABLE."
[2019-07-06] VITALS (7 sets, daily range): BP systolic 107–166; BP diastolic 53–111
[2019-07-06 05:00] LABS: HEMATOCRIT 36.3 % (37.0-47.0); HEMOGLOBIN 12.1 gm/dL (12.0-15.0); MCH 29.9 pg (26.0-34.0); MCHC 33.4 g/dL (28.0-37.0); MCV 89.3 fL (80.0-100.0); MPV 8.1 fl. (7.2-11.1); RBC 4.07 mil/uL (4.20-5.00); RDW-CV 14.3 % (10.5-14.5); WBC 13.2 thou/uL (4.0-11.0)
[2019-07-06 06:12] LABS: CALCIUM 9.2 mg/dL (8.5-10.1); MAGNESIUM 1.5 mg/dL (1.8-2.4); POTASSIUM 3.7 mmol/L (3.5-5.1)
--- NOTE | 2019-07-06 06:40 | NUR ---
ASSUMED CARE OF PT AFTER REPORT AT 1930. PT A&OX3-4. APHASIA NOTED. PER PTS DAUGHTER APHASIA STARTED BEFORE ADMISSION. PTS DAUGHTER WAS CONCERNED ABOUT PT HAVING A HARD TIME EXPRESSING HERSELF. THIS NURSE REASSURED PTS DAUGHTER. FORGETFUL AT TIMES. PT ON RA. PT TRACING AFIB ON TELE. PT UP WITH 1-2 ASSIST. PT COMPLAINED OF ABDOMINAL PAIN-MEDS GIVEN PER JUL. NIH CHARTED. MAGNESIUM 1.5. ELECTROLYTE PROTOCOL IN PLACE. PT ABLE TO SLEEP WELL ON BED. CALL LIGHT WITHIN REACH.
[2019-07-07] VITALS: BP 100/63
[2019-07-07 04:48] VITALS: BP 100/63; BP 141/83
[2019-07-07 05:06] LABS: ABSOLUTE EOSINOPHILS 0.1 thou/uL (0.0-0.7); ABSOLUTE LYMPHOCYTES 1.2 thou/uL (0.8-5.3); ABSOLUTE MONOCYTES 0.7 thou/uL (0.0-1.2); ABSOLUTE NEUTROPHILS 8.1 thou/uL (1.6-8.1); BASOPHILS 0.4 %; EOSINOPHILS 1.3 %; HEMATOCRIT 34.2 % (37.0-47.0); HEMOGLOBIN 11.8 gm/dL (12.0-15.0); LYMPHOCYTES 11.9 %; MCH 30.8 pg (26.0-34.0); MCHC 34.5 g/dL (28.0-37.0); MCV 89.4 fL (80.0-100.0); MPV 8.7 fl. (7.2-11.1); NUCLEATED RBCS 0 /100WBC; PLATELET COUNT* 169 thou/uL (150-400); POLYS 79.4 %; RBC 3.82 mil/uL (4.20-5.00); RDW-CV 14.5 % (10.5-14.5); WBC 10.3 thou/uL (4.0-11.0)
[2019-07-07 05:08] LABS: CALCIUM 9.5 mg/dL (8.5-10.1); CREATININE 0.9 mg/dL (0.6-1.3); POTASSIUM 3.5 mmol/L (3.5-5.1)
--- NOTE | 2019-07-07 06:28 | NUR ---
ASSUMED CARE OF PT AFTER REPORT AT 1930. PT A&OX4. VSSS. PHYSICAL ASSESSMENT COMPLETED AND CHARTED. PT ON RA. PT TRACING AFIB ON TELE. PT UP WITH 1 ASSIST TO RESTROOM. PT COMPLAINED OF HEADACHE-MED GIVEN PER JUL. PT WITH NO IV LINE FOR NOW- DR SARAVIA AWARE. PT ABLE TO SLEEP WELL ON BED. FALL PRECAUTIONS IN PLACE. CALL LIGHT WITHIN REACH.
[2019-07-07 08:00] VITALS: BP 187/87; BP 188/87
[2019-07-07 12:00] VITALS: BP 93/71
--- NOTE | 2019-07-07 12:40 | CON ---
[address] [address] CONSULTATION Name: CIARANITIN L Room: [address] M.R.#: [id number] Admission: 07/04/19 Attend Phys: German Braun Discharge: Date of : 41 Report #: [id number] THIS REPORT FOR: //name// cc: Modesto Delaney Steve T. DO ~ THIS REPORT FOR: //name// CC: Modesto Renteria DATE OF SERVICE: 07/05/2019 INFECTIOUS DISEASE CONSULTATION ATTENDING PHYSICIAN: Dr. Walden. REASON FOR EVALUATION: Gram-negative septicemia, likely complicated genitourinary tract source. HISTORY OF PRESENT ILLNESS: Chart reviewed, patient examined. This is a 73-year-old woman with fairly extensive medical history who has hypertension, atrial fibrillation who was admitted through the Emergency Room with complaints of fevers, chills, abdominal pain, some anorexia with poor p.o. intake. She does have history of urinary tract infections. Initial evaluation included a lactic acid 1.2. Influenza antigen was negative. White count was slightly elevated at 12.6. Chest x-ray showed no acute process. Urinalysis was fairly unremarkable. CT abdomen and pelvis was otherwise not specific to a diagnosis. Blood cultures, however, have gram-negative rods, 2/2 from admission. She was empirically started on therapy with Flagyl, ceftriaxone. She notes she is not significantly improved since admission, although her temperature curve appears to be trending down, she is perhaps mildly encephalopathic, does admit to some mild dyspnea as well. ALLERGIES: GABAPENTIN. AVOIDS STEROIDS WELL. CURRENT MEDICATIONS: Rivaroxaban, metronidazole, promethazine, melatonin, ceftriaxone, duloxetine, carvedilol, hydrocodone, levothyroxine, ondansetron, p.r.n. analgesics. PAST MEDICAL HISTORY: History of hypertension, diverticulosis, depression, restless legs, osteoarthritis, fibromyalgia, atrial fibrillation, history of DVT with PE, colostomy as result of colon resection and revision and closure, previous cholecystectomy, and hysterectomy. SOCIAL HISTORY: Nonsmoker, no ethanol, [place] [address] CONSULTATION Name: NITIN URBINA Room: [address] IN [facility]#: [id number] Admission: 07/04/19 Attend Phys: German Braun Discharge: Date of : 41 Report #: [id number] FAMILY HISTORY: Noncontributory. REVIEW OF SYSTEMS: Otherwise unremarkable 10-point review of systems with exception of the above. PHYSICAL EXAMINATION: GENERAL: She is somewhat lethargic, in [id number] distress, appears somewhat chronically ill. VITAL SIGNS: Temperature 99.4, pulse 96, respirations 20, blood pressure 107/53. SKIN: Warm, dry, no rashes. HEENT: Normocephalic. Extraocular muscles intact. NECK: Supple. LUNGS: Diminished breath sounds. HEART: Borderline tachycardic, irregular. I do not appreciate a murmur. ABDOMEN: Soft, may be some lower quadrant tenderness. There are no peritoneal signs. GENITOURINARY AND RECTAL: Deferred. LABORATORY DATA: Blood cultures as described above, gram-negative rods in 2/2 from the initial draws. Electrolytes: Sodium 138, potassium 3.7, chloride 103, bicarbonate 21, anion gap of 14, BUN and creatinine 14 and 1.0. Estimated GFR 54. Lactic acid, most recently 1.0. CBC: White count of 13.2, hematocrit 36.3, platelets of 183. CT abdomen and pelvis, some inflammatory changes noted in the right kidney collecting system, could not exclude pyelonephritis. There is no evidence of hydronephrosis. Liver functions were otherwise unremarkable. Albumin of 2.9, total protein 6.8. D-dimer 0.56. Troponin is less than 0.06. ASSESSMENT AND PLAN: Gram-negative septicemia, although the urinalysis was somewhat unremarkable. I still think that is likely source. We will arrange the antibiotics differently pending the results of the culture, may well have a resistant organism. She sounds like she has been on antibiotics recently for at least 2-3 urinary tract infection over the last several weeks, at this point, she remains somewhat tenuous. We will follow. <ELECTRONICALLY SIGNED> By: Mitchell Sow MD 07/07/19 1240 1548 [id number] Sow MD /nt
[2019-07-07 16:00] VITALS: BP 148/95
[2019-07-07 20:00] VITALS: BP 124/73
[2019-07-08] VITALS (10 sets, daily range): BP systolic 107–169; BP diastolic 49–84
[2019-07-08 04:15] LABS: ABSOLUTE EOSINOPHILS 0.3 thou/uL (0.0-0.7); ABSOLUTE LYMPHOCYTES 1.4 thou/uL (0.8-5.3); ABSOLUTE MONOCYTES 0.7 thou/uL (0.0-1.2); ABSOLUTE NEUTROPHILS 5.8 thou/uL (1.6-8.1); BASOPHILS 0.5 %; EOSINOPHILS 3.5 %; HEMATOCRIT 34.2 % (37.0-47.0); HEMOGLOBIN 11.8 gm/dL (12.0-15.0); LYMPHOCYTES 17.2 %; MCH 30.7 pg (26.0-34.0); MCHC 34.4 g/dL (28.0-37.0); MCV 89.3 fL (80.0-100.0); MONOCYTES 8.4 %; MPV 8.3 fl. (7.2-11.1); NUCLEATED RBCS 0 /100WBC; PLATELET COUNT* 176 thou/uL (150-400); POLYS 70.4 %; RBC 3.83 mil/uL (4.20-5.00); RDW-CV 14.5 % (10.5-14.5); WBC 8.2 thou/uL (4.0-11.0)
[2019-07-08 04:36] LABS: CALCIUM 9.7 mg/dL (8.5-10.1); CREATININE 0.9 mg/dL (0.6-1.3)
--- NOTE | 2019-07-08 05:23 | NUR ---
ASSUMED CARE OF PT AFTER REPORT AT 1930. PT A&OX4. VSS. PHYSICAL ASSESSMENT COMPLETED AND CHARTED. PT ON RA. PT TRACING AFIB ON TELE. PT UP WITH 1 ASSIST. PT COMPLAINED OF LEFT KNEE PAIN-MED GIVEN PER MAR. PT ABLE TO SLEEP WELL ON BED. FALL PRECAUTIONS IN PLACE. CALL LIGHT WITHIN REACH.
--- NOTE | 2019-07-08 10:42 | NUR ---
Rehab consult placed. Spoke with PT, they believe that Pt would be safe to dc home in a few days, therapies to continue to work with Pt. Following.
--- NOTE | 2019-07-08 12:19 | NUR ---
I have reviewed the documentation by INES LAZO from 07/08/2019 to 07/08/19, and I concur with it. BRUNA ZUÑIGA.
--- NOTE | 2019-07-08 13:14 | NUR ---
BLACK TOP SPREADER MACHINE OPERATOR: MET WITH PATIENT TODAY TO REVIEW STROKE SIGNS AND SYMPTOMS. DISCUSSED POSSIBLE CAUSES AND MEDICATIONS. WILL CONTINUE TO FOLLOW.
--- NOTE | 2019-07-08 15:54 | 2DMMODE ---
[place] [address] 2 D/M-MODE ECHOCARDIOGRAM Name: CIARANITIN L Room: [address] IN [facility]#: [id number] Admission: 07/04/19 Attend Phys: Kuldeep Renteria Discharge: Date of : 41 Date of Service: 07/08/19 1553 Report #: [id number] THIS REPORT FOR: cc: Modesto Delaney Steve T. DO Liston, Michael J. MD [facility] ~ APPROVED REPORT Study performed: 07/08/2019 14:44:05 EXAM: Comprehensive 2D, Doppler, and color-flow Echocardiogram Patient Location: In-Patient Room #: 200 Status: routine BSA: 2.13 HR: 78 bpm BP: 127/55 mmHg Rhythm: Atrial Fibrillation Other Information Study Quality: Good Indications CVA/TIA Echo Enhancing Agent Indication: Rule out Shunt Agent(s) / Amount(s) Used: Agitated Saline 10 cc 2D Dimensions IVSd: 13.74 (7-11mm) LVOT Diam: 24.84 (18-24mm) LVDd: 44.33 mm PWd: 12.82 (7-11mm) Ascending Ao: 32.34 (22-36mm) LVDs: 28.08 (25-40mm) Volumes Left Atrial Volume (Systole) LA ESV Index: 48.50 mL/m2 Aortic Valve AoV Peak Luis Enrique.: 1.71 m/s AO Peak Gr.: 11.71 mmHg LVOT Max P.27 mmHg AO Mean Gr.: 6.64 mmHg LVOT Mean P.60 mmHg LVOT Max V: 0.90 m/[place] [address] 2 D/M-MODE ECHOCARDIOGRAM Name: NITIN URBINA Room: [address] IN ..#: [id number] Admission: 07/04/19 Attend Phys: Kuldeep Renteria Discharge: Date of : 41 Date of Service: 07/08/19 1553 Report #: [id number] AO V2 VTI: 27.52 cm LVOT Mean V: 0.58 m/s SERINA (VTI): 2.70 cm2 LVOT V1 VTI: 15.34 cm Mitral Valve MV Decel. Time: 192.16 ms MV PHT: 55.73 ms MVA (PHT): 3.95 cm2 TDI Lateral E' Luis Enrique.: 0.11 m/s Pulmonary Valve PV Peak Luis Enrique.: 0.78 m/s PV Peak Gr.: 2.45 mmHg Tricuspid Valve RAP Estimate: 5.00 mmHg TR Peak Gr.: 27.45 mmHg RVSP: 32.00 mmHg PA Pressure: 32.00 mmHg Left Ventricle The left ventricle is normal size. There is normal LV segmental wall motion. Mild concentric left ventricular hypertrophy. Left ventricular systolic function is normal. LVEF is 55-60%. This study is not technically sufficient to allow evaluation of the LV diastolic function due to atrial fibrillation. Right Ventricle The right ventricle is normal size. The right ventricular systolic function is normal. Atria Left atrium is moderately dilated. Bubble study not technically adequate for interpretation. The right atrium size is normal. Aortic Valve The aortic valve is normal in structure. No aortic regurgitation is present. There is no aortic valvular stenosis. Mitral Valve There is mitral annular calcification. Trace mitral regurgitation. No evidence of mitral valve stenosis. Tricuspid Valve The tricuspid valve is normal in structure. Mild tricuspid regurgitation. The RVSP is 35 [place] [address] 2 D/M-MODE ECHOCARDIOGRAM Name: NITIN URBINA Room: [address]#: [id number] Admission: 07/04/19 Attend Phys: Kuldeep Renteria Discharge: Date of : 41 Date of Service: 07/08/19 1553 Report #: [id number] Pulmonic Valve The pulmonary valve is normal in structure. There is no pulmonic valvular regurgitation. Great Vessels The aortic root is normal in size. IVC is normal in size and collapses >50% with inspiration. Pericardium There is no pericardial effusion. <Conclusion> The left ventricle is normal size. Mild concentric left ventricular hypertrophy. Left ventricular systolic function is normal. LVEF is 55-60%. This study is not technically sufficient to allow evaluation of the LV diastolic function due to atrial fibrillation. Left atrium is moderately dilated. Bubble study not technically adequate for interpretation. Trace mitral regurgitation. Mild tricuspid regurgitation. The RVSP is 35 mmHg. IVC is normal in size and collapses >50% with inspiration. <ELECTRONICALLY SIGNED> By: Jaiden Nino MD, FACC 07/08/19 1553 1553 1553 Jaiden Nino MD, FACC /INF
[2019-07-08 16:27] LABS: CHOLESTEROL 150 mg/dL (<200); HDL CHOLESTEROL 18 mg/dL (>40); LDL CHOLESTEROL 90 mg/dL (<100); SERUM ASSESSMENT Clear; TC:HDL 8.3 Ratio (Not establshd); TRIGLYCERIDE 214 mg/dL (<150); VLDL 43 mg/dL (<40)
[2019-07-09] VITALS: BP 169/90
[2019-07-09 02:11] LABS: GLYCOHEMOGLOBIN (HGB A1C) 6.3 % (4.8-5.6)
[2019-07-09 04:00] VITALS: BP 132/87
--- NOTE | 2019-07-09 05:45 | NUR ---
Shift uneventful. Pt is medically stable at this time. Pt is aox4, running a-fib on telemetry, and breathing is even and unlabored on room air.
[2019-07-09 08:00] VITALS: BP 139/97
[2019-07-09 12:00] VITALS: BP 144/83
[2019-07-09 16:00] VITALS: BP 145/87
--- NOTE | 2019-07-09 17:40 | NUR ---
ASSUMED CARE AT 0730. ALERT ORIENTED PLEASANT COOPERATIVE. HX OF SOA CVA MOVES ALL EXTREMETIES. AMBULATES WITH WALKER TO BR TO VOID. MEDICATED WITH HYDROCODONE 2 TABS PO FOR GENERALIZED PAIN WITH RELIEF STATED. USES CALL LIGHT APPROPRIATELY FOR ASSIST APPETITE GOOD FEEDS SELF. SL PATENT. DID P.T. THIS A.M. HX OF A FIB RVR CONTROLLED. DAUGHTER JONO HERE VISITING TODAY.
[2019-07-09 20:00] VITALS: BP 201/106
[2019-07-10] VITALS (7 sets, daily range): BP systolic 108–186; BP diastolic 60–117
--- NOTE | 2019-07-10 06:17 | NUR ---
Shift uneventful. Pt is medically stable at this time. Pt is aox4, running a-fib on telemetry, respirations are even and unlabored on room air.
[2019-07-10] MEDS ORDERED: LIPITOR40 MG PO (10:02)
[2019-07-10] MEDS ORDERED: PLAVIX 75 MG TA75 M1 PO (10:02)
[2019-07-10] MEDS ORDERED: LEVAQUIN 500 M500 M2 PO (10:02)
[2019-07-11 00:30] VITALS: BP 140/81
[2019-07-11 03:56] LABS: HEMATOCRIT 39.1 % (37.0-47.0); HEMOGLOBIN 13.1 gm/dL (12.0-15.0); MCH 29.8 pg (26.0-34.0); MCHC 33.5 g/dL (28.0-37.0); MPV 8.4 fl. (7.2-11.1); NUCLEATED RBCS 0 /100WBC; RDW-CV 14.5 % (10.5-14.5); WBC 9.6 thou/uL (4.0-11.0)
[2019-07-11 04:00] VITALS: BP 157/75
[2019-07-11 04:00] LABS: ALBUMIN 2.5 g/dL (3.4-5.0); CALCIUM 9.5 mg/dL (8.5-10.1); CREATININE 0.9 mg/dL (0.6-1.3); POTASSIUM 3.9 mmol/L (3.5-5.1); TOTAL BILIRUBIN 0.4 mg/dL (<0.1-1.0); TOTAL PROTEIN 6.5 g/dL (6.4-8.2)
[2019-07-11 04:04] LABS: PLATELET COUNT* 287 thou/uL (150-400)
[2019-07-11 06:29] LABS: ABSOLUTE EOSINOPHILS 0.2 thou/uL (0.0-0.7); ABSOLUTE LYMPHOCYTES 1.6 thou/uL (0.8-5.3); ABSOLUTE MONOCYTES 0.6 thou/uL (0.0-1.2); ABSOLUTE NEUTROPHILS 7.2 thou/uL (1.6-8.1); METAMYELOCYTES 2 %; PLATELET ESTIMATE ADEQUATE
--- NOTE | 2019-07-11 07:05 | NUR ---
CHANGE OF SHIFT, BEDSIDE REPORT GIVEN PATIENT SEEN AT BEDSIDE, IN BED ASLEEP ASSUMED PATIENT CARE
--- NOTE | 2019-07-11 07:35 | NUR ---
Shift uneventful. Pt is medically stable at this time. Pt is aox4, running a-fib on telemetry, respirations are even and unlabored.
[2019-07-11 08:00] VITALS: BP 184/90
--- NOTE | 2019-07-11 08:37 | NUR ---
Spoke with , Pt doesn't think she can return home. Acute rehab consult pending vs. SNF. CM requested that therapies see Pt today to determine which LOC Pt will need. Following.
[2019-07-11 12:00] VITALS: BP 127/79
[2019-07-11 16:00] VITALS: BP 155/102
[2019-07-11 20:00] VITALS: BP 153/92
[2019-07-12 00:08] VITALS: BP 109/64
[2019-07-12 04:00] VITALS: BP 165/91
--- NOTE | 2019-07-12 07:43 | NUR ---
Shift uneventful. Pt is medically stable at this time. Pt is aox4, running a-fib on telemetry, respirations are even and unlabored on room air.
[2019-07-12 08:27] VITALS: BP 151/107
[2019-07-12 12:00] VITALS: BP 109/56
[2019-07-12 13:13] VITALS: BP 159/77
--- NOTE | 2019-07-12 13:36 | NUR ---
Insurance authorized Pt for acute rehab. Pt to dc to [facility] acute rehab later today. CM to fax dc orders and update Pt's dtr.
[2019-07-12 15:25] VITALS: BP 109/56
--- NOTE | 2019-07-12 15:34 | NUR ---
PT DISCHARGED TO REHAB ROOM 328. REPORT GIVEN TO COLETTE RCIHEY. COPY OF DISCHARGE PAPERWORK TO PT WITH EXPLAINATION. PT VERBALIZED UNDERSTANDING. IV ACCESS REMOVED.
== END 2019-07-12 16:00 | DRG 871 ==
LOC: M.ERS 18:28 → M.2W 22:15 → M.TBA-ER 22:15 → M.ERS 07-05 01:06 → M.2W 07-05 02:12
PROVIDERS: Emergency Medicine; Internal Medicine; Nurse Practitioner Family; ADMIT Internal Medicine
DX: A41.51 Sepsis due to Escherichia coli [E. coli] (principal); I63.512 Cerebral infarction due to unspecified occlusion or stenosis of left middle cerebral artery; N17.0 Acute kidney failure with tubular necrosis; G93.41 Metabolic encephalopathy; D68.59 Other primary thrombophilia; N12 Tubulo-interstitial nephritis, not specified as acute or chronic; Z68.42 Body mass index [BMI] 45.0-49.9, adult; Z66 Do not resuscitate; I10 Essential (primary) hypertension; J06.9 Acute upper respiratory infection, unspecified; E86.0 Dehydration; I48.91 Unspecified atrial fibrillation; K52.9 Noninfective gastroenteritis and colitis, unspecified; E66.01 Morbid (severe) obesity due to excess calories; G89.29 Other chronic pain; M54.9 Dorsalgia, unspecified; E03.9 Hypothyroidism, unspecified; G31.84 Mild cognitive impairment of uncertain or unknown etiology; R47.89 Other speech disturbances; M41.9 Scoliosis, unspecified; K57.90 Diverticulosis of intestine, part unspecified, without perforation or abscess without bleeding; F32.9 Major depressive disorder, single episode, unspecified; G25.81 Restless legs syndrome; M19.90 Unspecified osteoarthritis, unspecified site; M79.7 Fibromyalgia; Z90.710 Acquired absence of both cervix and uterus; Z90.49 Acquired absence of other specified parts of digestive tract; Z93.3 Colostomy status; Z86.718 Personal history of other venous thrombosis and embolism; Z86.711 Personal history of pulmonary embolism; Z79.899 Other long term (current) drug therapy; Z79.01 Long term (current) use of anticoagulants; Z88.8 Allergy status to other drugs, medicaments and biological substances; Z90.410 Acquired total absence of pancreas; Z80.1 Family history of malignant neoplasm of trachea, bronchus and lung; Z83.3 Family history of diabetes mellitus

== ENCOUNTER 2019-07-12 14:18 | Inpatient (IN) | payer MEDICARE ==
[~2019-07-12] VITALS: Ht 152.4 cm; Wt 68.8 kg
[~2019-07-12 14:18] MED LIST changes: +DULOXETINE HCL20 MG PO; +KLOR-CON M2020 MEQ PO; +LEVAQUIN 500 M500 M2 PO; +LIPITOR40 MG PO; +PLAVIX 75 MG TA75 M1 PO
[2019-07-12 16:38] VITALS: BP 156/90
[2019-07-12 17:43] LABS: HEMATOCRIT 39.2 % (37.0-47.0); HEMOGLOBIN 12.9 gm/dL (12.0-15.0); MCH 29.8 pg (26.0-34.0); MCHC 32.8 g/dL (28.0-37.0); MCV 90.9 fL (80.0-100.0); MPV 8.8 fl. (7.2-11.1); RBC 4.32 mil/uL (4.20-5.00); RDW-CV 14.7 % (10.5-14.5)
[2019-07-12 17:46] LABS: CALCIUM 9.7 mg/dL (8.5-10.1); POTASSIUM 4.4 mmol/L (3.5-5.1)
--- NOTE | 2019-07-12 18:18 | NUR ---
PT ADMITTED TO 328 AND IS ALERT AND ORIENTATED. PT ORIENTATED TO CONTROLS AND REHAB PROGRAM. PT ASSISTED TO BATHROOM WITH WALKER,GAITBELT AND MIN ASSIST OF 1.PT CONTINENT OF BLADDER.PT EATING DINNER IN DINNINGROOM WITH OTHER PT.PT DENIES NEED FOR PAIN MEDICATION AT PRESENT.
[2019-07-12 19:15] VITALS: BP 116/73
--- NOTE | 2019-07-13 02:30 | NUR ---
ASSUMED CARE 2 1939-07/11-TU.SITS IN RECLINER VISITING W/ DAUGHTER.CHAIR KRYSTINAM ON ALREAdy @ 1939.HOB UP.BED ALARM PUT ON @ 2109.WEARS PULL UPS FOR DRIBBLING. SALINE LOCK CLOTTED @ 225 & REMOVED.VOIDED 350 ML @ 0015.BLADDER SCAN BY PRODUCT ACCOUNTANT @ 0020.SEE PAIN MANAGEMENT @ 0027.FELT WARM @ 0030.TEMP.[id number] ORAL.ON HOURLY ROUNDS.PRODUCT ACCOUNTANT DOING ODD HOUR ROUNDS.
--- NOTE | 2019-07-13 05:24 | NUR ---
SLEPT LATE @ 111-07/12-THU.TOOK COKE HS SNACK.BRP X2 W/ SBA.INC URINE X1.PULL UPS CHANGED X1.
[2019-07-13 07:00] VITALS: BP 159/73
--- NOTE | 2019-07-13 12:47 | NUR ---
Nutrition: Pt admitted to rehab with Lt CVA. Heart Healthy diet orderd. Alb 2.5, prealb 18.4. Chronic diarrhea, e. coli sepsis, h/o colostomy takedown. Wt: 257#. GOALS: good po intake, good soluble fiber intake, consider probiotic or yogurt. Will f/u weekly. Mild risk at this time.
--- NOTE | 2019-07-13 15:59 | NUR ---
SHAMIKA and Dr Joe met with pt to review team conference summary and plan for reteam with possible dc next Wednesday 07/19. SW met with pt again later to complete initial assessment, introduce self, and SW role on inpt rehab unit. Pt lives in an apt alone but has 2 dtrs who are supportive and possible for dtrs to assist at dc if needed. Pt works at [employer] and says she thinks she worked to much for the past year and possibly was too stressed. Pt has 3 RWs and one of them is a rollator. Pt has hx of HH with [facility] but at this time, only HH in network with [facility]...SW explained this to pt and discussed SW will follow up with pt again closer to dc about recommendations and dc plans if HH needed. Pt says she does not want SNF and has not had hx of SNF but recalls hx of inpt rehab years ago. SW provided welcome folder and pt signed irf esperanza consent form. SW to continue to follow to assist with safe dc planning.
--- NOTE | 2019-07-13 16:29 | NUR ---
ASSUMMED CARE OF PT AT 0730, PT ALERT AND ORIENTED, TRANSFERS WITH SBA, GB WALKER, C/O BACK AND KNEE PAIN, MEDICATED PER ORDER, NEED TO REDIRECT PT AT TIMES, CONTINUOSLY TALKS AND DOES NOT FOCUS ON QUESTIONS ASKED OR TASK, PT HAS SOME INCONTINENCE, WEARS PULL UPS, AMBULATED TO TOILET, AMBULATED TO DININGROOM FOR LUNCH, PARTICIPATED IN ALL THERAPIES,UP IN CHAIR MOST OF SHIFT, HOURLY ROUNDING COMPLETED, ASSESSMENT COMPLETE, WILL CONTINUE TO MONITOR.
[2019-07-13 19:50] VITALS: BP 130/70
--- NOTE | 2019-07-14 05:24 | NUR ---
ASSUMED PT CARE AT 1930. PT AWAKE AND ALERT X4, POLITE AND COOPERATIVE WITH CARES. PT SITTING UP IN RECLINER AT SHIFT CHANGE BUT ASKING TO TRANSFER TO BED FOR THE NIGHT. TRANSFERS WITH SBA, GAIT BELT AND WALKER. C/O BACK AND KNEE PAIN, HYDROCODONE GIVEN WITH HS MEDS. PT SLEPT WELL OVERNIGHT. WEARS PULLUPS FOR URGENCY. AMBULATED TO BATHROOM TO VOID. NO STOOL THIS SHIFT. USES CALL LIGHT APPROPRIATELY. BED ALARM ON FOR SAFETY. HOURLY ROUNDING IN PROGRESS, WILL CONTINUE TO MONITOR.
[2019-07-14 07:21] VITALS: BP 124/58
[2019-07-14 20:00] VITALS: BP 130/73
--- NOTE | 2019-07-15 05:33 | NUR ---
ASSUMED PT CARE AT 1930. PT ALERT AND ORIENTED X4, POLITE AND COOPERATIVE WITH CARES. PT ALREADY IN BED AT SHIFT CHANGE. TRANSFERS WITH SBA, GAIT BELT AND WALKER. C/O BACK AND KNEE PAIN, HYDROCODONE GIVEN WITH HS MEDS. PT SLEPT WELL OVERNIGHT. WEARS PULLUPS FOR URGENCY. AMBULATED TO BATHROOM TO VOID. NO STOOL THIS SHIFT. USES CALL LIGHT APPROPRIATELY. BED ALARM ON FOR SAFETY. HOURLY ROUNDING IN PROGRESS, WILL CONTINUE TO MONITOR.
[2019-07-15 08:30] VITALS: BP 149/76
--- NOTE | 2019-07-15 18:23 | NUR ---
ALERT AND ORIENTED X4. UP WITH 1 ASSIST, GAIT BELT AND WALKER. USING PO PAIN MEDICATION TO HELP WITH KNEE PAIN. CONTINENT OF BOWEL AND BLADDER. PARTICIPATED WITH THERAPIES TODAY. USES CALL LIGHT WITHIN REACH. FALL PRECAUTIONS IN PLACE. BED AND CHAIR ALARM USED.
[2019-07-15 20:40] VITALS: BP 114/54
--- NOTE | 2019-07-16 01:26 | NUR ---
ASSUMED CARE AT 1930. PATIENT RESTING IN BED WITH COVERS PULLOVER EYES AT CHANGE OF SHIFT. AWAKENED FOR ASSESSMENT AND MEDS. TAKES PILLS WHOLE WITH WATER. UP WITH SBA, GAIT BELT, WALKER, NO UNSAFE BEHAVIORS NOTED WITH WALKER. WEARS PULLUPS. STATES THAT SHE IS "GONNA STOP DRINKING POP IN THE EVENINGS" TO DECREASE URINARY URGENCY. MEDICATED AT HS FOR PAIN IN KNEES. HOURLY ROUNDS CONTINUE. BED ALARM ON, CALL LITE IN REACH.
--- NOTE | 2019-07-16 06:15 | NUR ---
SLEPT MOST OF THE NIGHT EXCEPT TO VOID. VOIDS PER TOILET. UP WITH CGA, GAIT BELT, WALKER. NO C/O PAIN AFTER HS. TURNS SELF. HOURLY ROUNDS CONTINUE. BED ALARM ON. CALL LITE IN REACH.
[2019-07-16 07:50] VITALS: BP 132/67
--- NOTE | 2019-07-16 18:15 | NUR ---
AM ASSESSMENT AND VITAL SIGNS COMPLETED DOCUMENTED. PT WORKED WITH ALL THERAPIES AND AMBULATED TO THE DINING ROOMFOR MEALS. PRN PAIN MEDICATION GIVEN TWICE THIS SHIFT. FALL PRECAUTIONS AND HOURLY ROUNDING CONTINUE.
[2019-07-16 20:10] VITALS: BP 160/85
--- NOTE | 2019-07-17 05:47 | NUR ---
ASSUMED CARE AT 1930. PATIENT RESTING IN BED AT CHANGE OF SHIFT. TURNS SELF IN BED. UP WITH SBA, GAIT BELT, WALKER. TAKES PILLS WHOLE WITH WATER. WEARS PULLUPS. VOIDS PER TOILET. MEDICATED FOR PAIN IN KNEES, SEE MAR. SLEPT MOST OF THE NIGHT EXCEPT TO VOID. HOURLY ROUNDS CONTINUE. BED ALARM ON. CALL LITE IN REACH.
[2019-07-17 08:14] VITALS: BP 165/63
--- NOTE | 2019-07-17 16:48 | NUR ---
ASSUMMED CARE OF PT AT 0730, PT ALERT AND ORIENTED, TRANSFERS WITH SBA, GB WALKER, UP IN RECLINER MUCH OF SHIFT, GROOMED STANDING IN FRONT OF SINK, C/O GENERALIZED FIBROMYAGIA PAIN, MEDICATED X 1 WITH GD RELIEF, AMBULATES TO TOILET TO VOID, NO BM THIS SHIFT, TAKING FOOD AND FLUIDS WELL, HAD LUNCH IN DININGROOM, HOURLY ROUNDING COMPLETED, ASSESSMENT COMPLETE, WILL CONTINUE TO MONITOR.
[2019-07-17 20:18] VITALS: BP 151/83
--- NOTE | 2019-07-18 05:49 | NUR ---
ASSUMED CARE AT 1930. PATIENT RESTED IN RECLINER UNTIL AROUND 2200. UP WITH SBA, GAIT BELT, WALKER. VOIDS PER TOILET. WEARS PULLUPS. TAKES PILLS WHOLE WITH WATER. MEDICATED FOR KNEE PAIN WITH RETURN TO SLEEP. APPEARS TO HAVE SLEPT WELL. BED ALARM ON. CALL LITE IN REACH. HOURLY ROUNDS CONTINUE.
[2019-07-18 07:37] VITALS: BP 132/80
--- NOTE | 2019-07-18 16:10 | NUR ---
pt has worked with therapies and calls for assist to bathroom pt ambulates with sba if 1,walker and gaitbelt. pt eats meals in dinningroom and ambulates to and from room. prn for knee and generalized aches and pain given this afternoon with good effect. pt remains alert and orientated.
[2019-07-18 19:30] VITALS: BP 122/74
--- NOTE | 2019-07-19 05:43 | NUR ---
SLEEPING SINCE 2100 & SLEPT GOOD ALL NIGHT.BRP W/ SBA X2.REFUSED HS SNACK.
--- NOTE | 2019-07-19 05:45 | NUR ---
ASSUMED CARE @ 1944-07/17-THU.AWAKE IN BED W/ HOB UP-ON PHONE.BED ALARM PUT ON @ 1944.SEE PAIN MAnagement @ 2017.ON HOURLY ROUNDS.ELECTRONICS ASSEMBLER doing ODD HOUR ROUNDS.SBA FOR ALL TRANSFERS & TOILETING.
[2019-07-19 07:30] VITALS: BP 175/89
--- NOTE | 2019-07-19 16:25 | NUR ---
PT HAS PARTICIPATED WITH THERAPIES AND CALLS FOR ASSIST NEEDED. PT AMBULATES WITH SBA OF 1 WITH WALKER AND GAITBELT. PT IS CONTINENT OF B+B USEING TOILET.PRN FOR GENERALIZED PAIN GIVEN WITH GOOD EFFECT.PT REMAINS ALERT AND ORIENTATED.
[2019-07-19 20:00] VITALS: BP 144/85
[2019-07-20 05:33] LABS: HEMATOCRIT 37.9 % (37.0-47.0); MCH 30.2 pg (26.0-34.0); MCHC 34.1 g/dL (28.0-37.0); MCV 88.5 fL (80.0-100.0); MPV 7.5 fl. (7.2-11.1); RBC 4.29 mil/uL (4.20-5.00); RDW-CV 14.7 % (10.5-14.5); WBC 6.5 thou/uL (4.0-11.0)
--- NOTE | 2019-07-20 05:46 | NUR ---
ASSUMED CARES AT 1915. ALERT AND ORIENTED. PLEASANT. PAIN MEDS GIVEN FOR LEFT KNEE PAIN. WOULD LIKE TO TRY LIDOCAINE PATCH. SBA WITH GAIT BELT AND WALKER. UP TO BATHROOM. SLEPT MOST OF THE NIGHT. CALL LIGHT IN REACH AND BED ALARM ON.
[2019-07-20 06:03] LABS: ALBUMIN 2.7 g/dL (3.4-5.0); CALCIUM 9.5 mg/dL (8.5-10.1); CREATININE 1.1 mg/dL (0.6-1.3); TOTAL BILIRUBIN 0.3 mg/dL (<0.1-1.0); TOTAL PROTEIN 6.3 g/dL (6.4-8.2)
[2019-07-20 07:35] VITALS: BP 177/86
--- NOTE | 2019-07-20 15:06 | NUR ---
SHAMIKA and Dr Joe met with pt to review team conference summary and plan for pt to dc on Thursday needing a few more days to continue towards meeting goals. Pt was okay with plan. Pt informed her dtrs of plan. SW to continue to follow to assist with safe dc planning. HH to be arranged at dc.
--- NOTE | 2019-07-20 19:00 | NUR ---
PT AOX4, TOLERTAING DIET, ON RA, NO SKIN ISSUES NOTED THIS SHIFT. PT PAIN MEDICATIONS DISCUSSED AND CHANGED THIS SHIFT AND LIDODERM PATCH ORDERED AND CALLED PHARMACY REGARDING TIME CHANGE ON THIS PATCH TO PROVIDE IN MORNING. PT MOVED TO APARTMENT AND DISCUSSED MOD I POTENTIALLY OVER THE WEEKEND. NO OTHER CONCERNS NOTED THIS SHIFT. WILL CONTINUE TO MONITOR AND ASSESS
[2019-07-20 19:58] VITALS: BP 142/61
--- NOTE | 2019-07-21 05:27 | NUR ---
ASSUMED CARES AT 1915. ALERT AND ORIENTED. PLEASANT. C/O PAIN TO LEFT KNEE. NORCO GIVEN. SBA WITH GAIT BELT AND WALKER. UP TO BATHROOM. SLEPT LITTLE OFF AND ON. CALL LIGHT IN REACH AND BED ALARM ON.
[2019-07-21 08:00] VITALS: BP 172/91
--- NOTE | 2019-07-21 16:30 | NUR ---
ASSUMMED CARE OF PT AT 0730, PT ALERT AND ORIENTED, PT TRANSFERS WITH SBA, GB WALKER, VOIDS PER TOILET, C/O PAIN IN LEFT KNEE, MEDICATED X 1 FOR PAIN AND LIDOCAINE PATCH APPLIED, TAKING FOOD AND FLUIDS WELL, AMBULATED TO DININGROOM FOR LUNCH, PARTCIPATED IN ALL THERAPIES, HOURLY ROUNDING COMPLETED, ASSESSMENT COMPLETE, WILL CONTINUE TO MONITOR.
[2019-07-21 20:00] VITALS: BP 126/72
--- NOTE | 2019-07-22 04:47 | NUR ---
ASSUMED PT CARE AT 1930. PT ALERT AND ORIENTED X4, POLITE AND COOPERATIVE WITH CARES. PT DENIES PAIN, HAVING HAD TWO NORCO JUST PRIOR TO SHIFT CHANGE. PT UP WITH SBA, GAIT BELT AND WALKER TO BATHROOM TO VOID X2. NO STOOL THIS SHIFT. SLEPT WELL OVERNIGHT. USES CALL LIGHT APPROPRIATELY. BED ALARM ON FOR SAFETY. HOURLY ROUNDING IN PROGRESS, WILL CONTINUE TO MONITOR.
[2019-07-22 07:47] VITALS: BP 169/98
--- NOTE | 2019-07-22 16:48 | NUR ---
ASSUMMED CARE OF PT AT 0730, PT ALERT AND ORIENTED, TRANSFERS WITH SBA GB WALKER, WILL BE MOD I TOMORROW, C/O PAIN IN LEFT KNEE, LIDOCAINE PATCH APPLIED AND MEDICATED PER ORDER, TAKING FOOD AND FLUIDS WELL, PARTICIPATED IN ALL THERAPIES, HOURLY ROUNDING COMPLETED, ASSESSMENT COMPLETE, WILL CONTINUE TO MONITOR.
--- NOTE | 2019-07-22 17:10 | NUR ---
SW met with pt to discuss dc for Thursday and provided HH options. SHAMIKA sent initial referral to pt preference of [facility] and final orders/med list to be faxed upon dc day. Fax: [phone]. Pt has DME at home already. Pt dtr to provide pt ride home.
[2019-07-22 17:12] VITALS: BP 169/98
[2019-07-22 20:00] VITALS: BP 122/67
--- NOTE | 2019-07-23 05:04 | NUR ---
ASSUMED PT CARE AT 1930. PT ALERT AND ORIENTED X4, POLITE AND COOPERATIVE WITH CARES. PT UP WITH SBA, GAIT BELT AND WALKER TO BATHROOM TO VOID X2. NO STOOL THIS SHIFT. SLEPT WELL OVERNIGHT. USES CALL CALL LIGHT APPROPRIATELY. PT TO BE MOD I IN ROOM TODAY. ANTICIPATING DISCHARGE THURSDAY. HOURLY ROUNDING IN PROGRESS, WILL CONTINUE TO MONITOR.
[2019-07-23 07:00] VITALS: BP 153/94
--- NOTE | 2019-07-23 17:01 | NUR ---
ALERT AND ORIENTED X4. UP AD TALI IN ROOM ON MOD I WITHOUT DIFFICULTY. USES WALKER WHEN WALKING TO DINNING ROOM WITH STAND BY ASSIST. PATCH AND PO PAIN MEDICATION HELPFUL FOR LEFT KNEE PAIN. CONTINENT OF BOWEL AND BLADDER. USES CALL LIGHT WHEN NEEDING ASSIST.
[2019-07-23 20:00] VITALS: BP 146/82
--- NOTE | 2019-07-24 05:42 | NUR ---
ASSUMED PT CARE AT 1930. PT ALERT AND ORIENTED X4, POLITE AND COOPERATIVE WITH CARES. PT MOD I IN ROOM. UP TO BATHROOM TO VOID X2. SLEPT WELL OVERNIGHT. USES CALL LIGHT APPROPRIATELY. ANTICIPATING DISCHARGE TOMORROW. HOURLY ROUNDING IN PROGRESS, WILL CONTINUE TO MONITOR.
[2019-07-24 09:30] VITALS: BP 192/83
[2019-07-24 13:30] VITALS: BP 130/64
--- NOTE | 2019-07-24 19:04 | NUR ---
PATIENT ALERT AND ORIENTED. PATIENT SUPPOSED TO GO HOME TOMORROW. PATIENT AMBULATED TO THE DINING RAMOS WITH WALKER AND STAND BY ASSIST. PATIENT PAIN 7/10 IN LEFT KNEE. TREATED WITH PAIN MEDICATION.
[2019-07-24 19:40] VITALS: BP 146/113
[2019-07-24 23:15] VITALS: BP 143/84
--- NOTE | 2019-07-25 01:44 | NUR ---
ASSUMED CARE @ 1936-07/23-SUN.SITS IN RECLINER W/ LE'S UP WATCHING TV.MOD IND NOW.BUT INSTRUCTED IF GROGGY OR SLEEPY @ NIGHT- CAN CALL FOR SBA FOR BRP'S. BP @ 0-146/113-LEFT ARM.ASYMPTOMATIC.HS DOSES COREG & NORVASC BOTH GIVEN EARLY @ 1956 & 1957.IN BED @ 2200-AWAKE W/ HOB UP.ON HOURLY ROUNDS.BP RE-CHECKED @ 2315-LEFT ARM-143/84.
--- NOTE | 2019-07-25 05:33 | NUR ---
SLEPT LATE @ 0000-07/24-THURSDAY.TOOK ALL DIET SODA HS SNACK.FOR DISCHARGE TODAY-07/24-THURSDAY.
[2019-07-25 08:00] VITALS: BP 155/85
[2019-07-25] MEDS ORDERED: NORVASC 2.5 MG2.5 M1 PO (13:54)
[2019-07-25 14:03] VITALS: BP 169/98
[2019-07-25] MEDS ORDERED: STOOL SOFTENER100 M1 PO (14:07)
[2019-07-25] MEDS ORDERED: LIDODERM1 EACH TOP (14:09)
[2019-07-25] MEDS ORDERED: COLON HERBAL C1 EACH PO (14:16)
[2019-07-25] MEDS ORDERED: DULCOLAX10 MG RECTAL (14:19)
--- NOTE | 2019-07-25 14:20 | NUR ---
CM SPOKE TO THE PATIENT TO DISCUSS DISCHARGE PLANNING NEEDS, HH, AND THE NEED FOR DME AT D/C. PATIENT INFORMS THAT THE PLANS IS TO D/C HOME TODAY WITH HH AND A WALKER. CM SPOKE TO PROVIDER [facility] TO INFORM OF THE DME REFERRAL AND FAXED THE PATIENT'S FACESHEET, H&P, AND DME ORDER. [facility]ER [facility] INFOMRMED OF THE APPROVAL FOR A FWW. FWW TO BE DISPENSED BY P.T. D/C CLINICAL PHLEBOTOMIST SPOKE TO PT'S CHOSEN [facility] TO INFORM OF THE PATIENT'S D/C AND FAXED THE D/C ORDERS. CM WILL REMAIN AVAILABLE TO ASSIST AND FOLLOW NEEDED. [facility] PH: [phone] FAX: [phone]
[2019-07-25] MEDS ORDERED: MYLANTA MAXIMU355 ML PO (14:21)
[2019-07-25] MEDS ORDERED: FLEET ENEMA133 ML RECTAL (14:23)
[2019-07-25] MEDS ORDERED: ACETAMINOPHEN PO (14:26)
--- NOTE | 2019-07-25 17:56 | NUR ---
PATIENT VERBALIZED UNDERSTANDING OF DISCHARGE INSTRUCTIONS. PATIENT SENT HOME WITH NEW WALKER. RX SENT WITH PATIENT. PATIENT IN NO ACUTE DISTRESS AT TIME OF DISCHARGE. D/C TO HOME VIA W/C WITH FAMILY TO FAMILY CAR.
== END 2019-07-25 15:00 | disposition home health service (06) | DRG 64 ==
LOC: M.REH 14:18
PROVIDERS: Family Medicine; ADMIT Physical Medicine & Rehabilitation
DX: I63.81 Other cerebral infarction due to occlusion or stenosis of small artery (principal); G93.41 Metabolic encephalopathy; A41.51 Sepsis due to Escherichia coli [E. coli]; I48.20 Chronic atrial fibrillation, unspecified; D68.59 Other primary thrombophilia; F32.9 Major depressive disorder, single episode, unspecified; G25.81 Restless legs syndrome; G89.29 Other chronic pain; M54.9 Dorsalgia, unspecified; I10 Essential (primary) hypertension; M19.90 Unspecified osteoarthritis, unspecified site; M79.7 Fibromyalgia; G31.84 Mild cognitive impairment of uncertain or unknown etiology; K57.90 Diverticulosis of intestine, part unspecified, without perforation or abscess without bleeding; Z90.710 Acquired absence of both cervix and uterus; Z90.49 Acquired absence of other specified parts of digestive tract; Z93.3 Colostomy status; Z86.711 Personal history of pulmonary embolism; Z86.718 Personal history of other venous thrombosis and embolism; Z79.01 Long term (current) use of anticoagulants; Z88.8 Allergy status to other drugs, medicaments and biological substances; Z83.3 Family history of diabetes mellitus; Z80.1 Family history of malignant neoplasm of trachea, bronchus and lung

== ENCOUNTER 2019-12-28 16:48 | Emergency (ER) | payer MEDICARE ==
[~2019-12-28] VITALS: Ht 152.4 cm; Wt 99.8 kg
[~2019-12-28 16:48] MED LIST changes: +ACETAMINOPHEN PO; +COLON HERBAL C1 EACH PO; +DULCOLAX10 MG RECTAL; +FLEET ENEMA133 ML RECTAL; +LIDODERM1 EACH TOP; +MYLANTA MAXIMU355 ML PO; +NORVASC 2.5 MG2.5 M1 PO; +STOOL SOFTENER100 M1 PO
[2019-12-28 17:17] LABS: ABSOLUTE BASOPHILS 0.1 thou/uL (0.0-0.2); ABSOLUTE EOSINOPHILS 0.4 thou/uL (0.0-0.7); ABSOLUTE LYMPHOCYTES 3.2 thou/uL (0.8-5.3); ABSOLUTE MONOCYTES 0.8 thou/uL (0.0-1.2); ABSOLUTE NEUTROPHILS 7.2 thou/uL (1.6-8.1); BASOPHILS 0.9 %; EOSINOPHILS 3.4 %; HEMATOCRIT 45.7 % (37.0-47.0); HEMOGLOBIN 15.4 gm/dL (12.0-15.0); LYMPHOCYTES 27.3 %; MCH 30.3 pg (26.0-34.0); MCHC 33.6 g/dL (28.0-37.0); MCV 90.3 fL (80.0-100.0); MPV 8.7 fl. (7.2-11.1); NUCLEATED RBCS 0 /100WBC; PLATELET COUNT* 213 thou/uL (150-400); POLYS 61.4 %; RBC 5.07 mil/uL (4.20-5.00); RDW-CV 14.1 % (10.5-14.5); WBC 11.7 thou/uL (4.0-11.0)
[2019-12-28 17:26] LABS: CREATININE 1.1 mg/dL (0.6-1.3); POTASSIUM 4.1 mmol/L (3.5-5.1)
[2019-12-28 17:37] LABS: APTT 27.6 Seconds (25.0-31.3); INR 1.2; PROTIME 12.2 Seconds (9.20-11.50)
[2019-12-28 17:39] LABS: ALBUMIN 3.8 g/dL (3.4-5.0); CK-MB MASS 0.7 ng/mL (<0.5-3.6); MAGNESIUM 1.9 mg/dL (1.8-2.4); TOTAL BILIRUBIN 0.4 mg/dL (<0.1-1.0); TOTAL PROTEIN 7.3 g/dL (6.4-8.2)
[2019-12-28 18:06] VITALS: BP 130/61
--- NOTE | 2019-12-29 12:15 | EKG ---
[place] [address] ELECTROCARDIOGRAM REPORT Name: NITIN URBINA Room: [facility]#: [id number] Admission: 12/28/19 Attend Phys: Discharge: 12/28/19 Date of : 41 Date of Service: 12/28/19 1701 Report #: [id number] THIS REPORT FOR: //name// [facility] ED Test Date: 2019-12-28 Test Time: 17:01:09 Pat Name: NITIN URBINA Department: Room: Gender: English Language Learner Tutor: HERMAN : 1945 Requested By: Gomez Ferguson Order Number: [id number] MD: Jaiden Nino Measurements Intervals [place] Rate: 72 P: [place]: QRS: 86 QRSD: 105 T: -71 QT: 383 QTc: 420 Interpretive Statements Atrial fibrillation Borderline right axis deviation Borderline T abnormalities, inferior leads Compared to ECG 07/04/2019 19:58:42 No significant changes Electronically Signed On 12-29-2019 12:15:25 CDT by Jaiden Nino [email or web address] <ELECTRONICALLY SIGNED> By: Jaiden Nino MD, FACC 12/29/19 1215 170 170 Jaiden Nino MD, FAC /EPI
== END 2019-12-28 18:06 | disposition home or self-care (01) ==
LOC: M.ERS 16:48
PROVIDERS: Family Medicine
DX: I48.91 Unspecified atrial fibrillation (principal); I10 Essential (primary) hypertension; M19.90 Unspecified osteoarthritis, unspecified site; M79.7 Fibromyalgia; G25.81 Restless legs syndrome; G89.29 Other chronic pain; F32.9 Major depressive disorder, single episode, unspecified; Z90.710 Acquired absence of both cervix and uterus; Z90.49 Acquired absence of other specified parts of digestive tract; Z86.711 Personal history of pulmonary embolism; Z86.718 Personal history of other venous thrombosis and embolism; Z88.8 Allergy status to other drugs, medicaments and biological substances

== ENCOUNTER 2020-07-19 12:31 | Inpatient (IN) | payer MEDICARE ==
[~2020-07-19] VITALS: Ht 160 cm; Wt 114.3 kg
[2020-07-19 12:41] VITALS: BP 102/49
[2020-07-19 13:05] LABS: ABSOLUTE EOSINOPHILS 0.1 thou/uL (0.0-0.7); ABSOLUTE MONOCYTES 0.7 thou/uL (0.0-1.2); ABSOLUTE NEUTROPHILS 5.7 thou/uL (1.6-8.1); BASOPHILS 0.4 %; EOSINOPHILS 1.1 %; HEMATOCRIT 41.6 % (37.0-47.0); LYMPHOCYTES 23.7 %; MCH 29.7 pg (26.0-34.0); MCHC 33.6 g/dL (28.0-37.0); MCV 88.6 fL (80.0-100.0); MONOCYTES 8.7 %; MPV 8.4 fl. (7.2-11.1); NUCLEATED RBCS 0 /100WBC; PLATELET COUNT* 237 thou/uL (150-400); POLYS 66.1 %; RDW-CV 14.8 % (10.5-14.5); WBC 8.5 thou/uL (4.0-11.0)
[2020-07-19 13:14] LABS: CALCIUM 10.2 mg/dL (8.5-10.1); CREATININE 1.5 mg/dL (0.6-1.3); POTASSIUM 3.7 mmol/L (3.5-5.1)
[2020-07-19 13:17] LABS: APTT 26.5 Seconds (25.0-31.3); PROTIME 10.9 Seconds (9.20-11.50)
[2020-07-19 13:25] LABS: ALBUMIN 3.1 g/dL (3.4-5.0); TOTAL BILIRUBIN 0.5 mg/dL (<0.1-1.0); TOTAL PROTEIN 7.3 g/dL (6.4-8.2)
[2020-07-19 15:22] VITALS: BP 118/99
[2020-07-19 15:24] VITALS: BP 118/99
--- NOTE | 2020-07-19 17:08 | EKG ---
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
[2020-07-19 20:00] VITALS: BP 96/67
[2020-07-20] VITALS: BP 134/68
[2020-07-20 04:00] VITALS: BP 107/78
[2020-07-20 04:38] LABS: HEMATOCRIT 39.2 % (37.0-47.0); MCHC 33.1 g/dL (28.0-37.0); MCV 87.8 fL (80.0-100.0); MPV 8.3 fl. (7.2-11.1); NUCLEATED RBCS 0 /100WBC; PLATELET COUNT* 216 thou/uL (150-400); RBC 4.47 mil/uL (4.20-5.00); RDW-CV 14.4 % (10.5-14.5); WBC 4.3 thou/uL (4.0-11.0)
[2020-07-20 05:07] LABS: ALBUMIN 2.8 g/dL (3.4-5.0); CALCIUM 10.8 mg/dL (8.5-10.1); POTASSIUM 4.6 mmol/L (3.5-5.1); TOTAL BILIRUBIN 0.4 mg/dL (<0.1-1.0); TOTAL PROTEIN 6.8 g/dL (6.4-8.2)
[2020-07-20 06:06] LABS: ABSOLUTE LYMPHOCYTES 0.9 thou/uL (0.8-5.3); ABSOLUTE NEUTROPHILS 3.2 thou/uL (1.6-8.1); LYMPHOCYTES 20.1 %; POLYS 74.4 %
[2020-07-20 06:07] LABS: ABSOLUTE MONOCYTES 0.2 thou/uL (0.0-1.2); BASOPHILS 0.2 %; MONOCYTES 5.2 %
[2020-07-20 08:30] VITALS: BP 108/68
[2020-07-20 12:27] VITALS: BP 113/80
--- NOTE | 2020-07-20 13:28 | CON ---
[address] [address] CONSULTATION Name: NITIN URBINA Krys Room: [address] IN M.R.#: [id number] Admission: 07/19/20 Attend Phys: German Braun Discharge: Date of : 41 Report #: [id number] THIS REPORT FOR: cc: Modesto Delaney Steve T. DO ~ Arpan Szymanski MD DATE OF SERVICE: 07/19/2020 Consult has been requested by Dr. Renteria. INDICATION FOR CONSULTATION: COVID-19. HISTORY OF PRESENT ILLNESS: This is a 74-year-old female with past medical history is as mentioned below. The patient reports that she is a lifetime nonsmoker. The patient is on long-term anticoagulation with multiple episodes of DVT and pulmonary emboli in the past, also has had atrial fibrillation. The patient is a poor historian. It appears that she has had shortness of breath for a long period of time. Recently, there is an increase in shortness of breath which is the reason that she came to the Emergency Room. This is over the last several days. She does have a cough. There is not much sputum. She does not have chest pain at this time, although it is noted that she received nitroglycerin in the Emergency Room. She does report that she has been diaphoretic, but denies fever, chills, or change in appetite. She does describe some sleep complaints and daytime sleepiness, which are at baseline. She does not have increasing swelling of lower extremities or calf pain. According to the records, the patient had a reported chest pain with exertion and lightheadedness. REVIEW OF SYSTEMS: The patient's review of systems is negative except as mentioned above. PAST MEDICAL HISTORY: Multiple episodes of DVT and pulmonary emboli in the past. The patient had an IVC filter at one point, which has been removed. She is on long-term anticoagulation. Atrial fibrillation, echocardiogram from last year shows a normal left ventricular ejection fraction without elevation in right heart pressures, hypertension, sciatica, scoliosis, diverticulosis, depression, osteoarthritis, fibromyalgia, hysterectomy, cholecystectomy, breast biopsy, colon resection with colostomy, chronic back pain, and hernia repair multiple times. SOCIAL HISTORY: Lifetime nonsmoker. No known history of heavy alcohol use [place] [address] CONSULTATION Name: CIARANITIN L Room: [address]#: [id number] Admission: 07/19/20 Attend Phys: German Braun Discharge: Date of : 41 Report #: [id number] ALLERGIES: SHE REPORTS AN ADVERSE REACTION OR ALLERGY TO GABAPENTIN. THERE IS MENTION OF STEROIDS AN ALLERGY; however, I do not believe that the patient has any allergy to steroids. She had reported in the past that she had an elevation in blood pressure with use of steroids, this does not represent an allergy. CURRENT MEDICATIONS: List in [facility] reviewed. HOME MEDICATIONS: List also in [facility] reviewed, noted the patient is on Xarelto, long-term. PHYSICAL EXAMINATION: GENERAL: She is alert, awake and oriented; however, provides only a limited history. VITAL SIGNS: She has a pulse of 79, blood pressure of 96/67. She last recorded to be 94% O2 saturation on room air. She is afebrile with a temperature of 36.2, respiratory rate is mildly elevated to 20. HEENT: Head is normocephalic and atraumatic. Body mass index elevated to 45. Mucous membranes dry. NECK: Does not show raised JVP, asymmetry, mass or lymph nodes. CHEST: Symmetrical expansion on inspection and palpation. On auscultation, breath sounds are bilaterally equal, but decreased. Expirations are prolonged. I do not hear any added sounds. HEART: Irregular, but there is no murmur. ABDOMEN: Soft and nontender. EXTREMITIES: Lower extremities show no edema, no calf tenderness. SKIN: Dry and intact. NEUROLOGICAL: Moves all extremities bilaterally equally and spontaneously with no focal deficit identified. LABORATORY DATA: The patient's chest x-ray is reviewed. There is an opacity in the right middle lobe region on the previous chest x-rays as well. There is some increase in this opacity. I do not see any increase in pulmonary vascular congestion or other infiltrates. The patient's lab work, which show creatinine elevated to 1.5. Baseline creatinine is 1.1 in [facility] reviewed. There is an elevation in proBNP. This is noted. CBC, coagulation studies as well as COVID-19 antigen, which is positive in [facility] reviewed. ASSESSMENT AND PLAN: 1. Shortness of breath. The acute increase of the patient's shortness of breath is secondary to COVID-19, it also does appear to me that there is a significant component of bronchospasm. In addition, the patient has some shortness of breath on exertion at her baseline as well, the etiology of which needs to be assessed further. [address] [address] CONSULTATION Name: NITIN URBINA Room: [address] IN Aye#: [id number] Admission: 07/19/20 Attend Phys: German Braun Discharge: Date of : 41 Report #: [id number] 2. COVID-19. At the time of my evaluation, the patient was saturating 94% on room air. We will watch her O2 saturation very closely. If there is increase in shortness of breath or there is any drop in O2 saturation below 94% on room air, then I would have a very low threshold of starting her on remdesivir. In that case, I will also consider giving her convalescent plasma. The patient is on dexamethasone 6 mg at this time daily. I agree with the same. 3. Bronchospasm. I feel that the patient was bronchospastic at the time of my evaluation. She has a longstanding history of shortness of breath. It will be possible that she has previously undiagnosed bronchial asthma. This will need to be evaluated further later. Regardless, she is on 6 mg of dexamethasone at this time. Should her shortness of breath worsen, then I will increase the dose of steroid. I considered the same now, but I am reluctant to do the same without giving her remdesivir and I understand the recommendations are to start remdesivir if O2 saturation is less than 94% on room air. Should she worsen, I will increase steroids and start remdesivir. I also considered transferring her to a negative pressure room to start nebulized bronchodilators. However, says in the past she has not done well with nebulizers and she wants to avoid these if possible. Therefore, we will follow response to albuterol inhaler first. 4. Pulmonary infiltrates, primarily these are likely secondary to COVID-19 and chronic changes, but I feel that it is reasonable to cover for secondary bacterial infections as well with broad-spectrum antibiotics as currently ordered and we will continue as currently ordered. 5. Mild renal insufficiency/hypotension. Blood pressure is on the lower side. Creatinine is elevated to 1.5. Baseline creatinine is 1.1; therefore, I do feel that we should go ahead and give her some IV fluids and start the Ringer's lactate at 70 mL an hour. If blood pressure remains low or creatinine rises, she could be given more fluids. If as a result, there is an increase in shortness of breath then see plan as above. 6. Morbid obesity. I strongly suspect she has obstructive sleep apnea. Should she decline, we will have a low threshold of using a BiPAP while asleep. 7. Multiple episodes of deep venous thrombosis and pulmonary emboli in the past. She is on anticoagulation. 8. Past medical history of atrial fibrillation. 9. Hypertension. Blood pressure is on the lower side. She is on lisinopril as well as Norvasc. We would defer to the primary service, may consider holding or cutting back on antihypertensive medications if blood pressure remains on the lower side. 10. Clostridium difficile prophylaxis. We will go ahead and add Lactinex. Thanks for this consultation. <ELECTRONICALLY SIGNED> By: Arpan Szymanski MD 07/20/20 1328 2224 [id number] Szymanski MD /nt
[2020-07-20 19:03] VITALS: BP 120/61
[2020-07-20 22:35] LABS: CALCIUM 10.3 mg/dL (8.5-10.1); CREATININE 1.1 mg/dL (0.6-1.3); PHOSPHORUS* 2.9 mg/dL (2.5-4.9)
[2020-07-20 23:09] VITALS: BP 150/85
[2020-07-21 06:09] LABS: ABSOLUTE MONOCYTES 0.5 thou/uL (0.0-1.2); ABSOLUTE NEUTROPHILS 11.5 thou/uL (1.6-8.1); BASOPHILS 0.1 %; HEMATOCRIT 36.7 % (37.0-47.0); HEMOGLOBIN 12.3 gm/dL (12.0-15.0); LYMPHOCYTES 7.8 %; MCH 29.1 pg (26.0-34.0); MCHC 33.5 g/dL (28.0-37.0); MCV 86.8 fL (80.0-100.0); MONOCYTES 4.1 %; MPV 8.1 fl. (7.2-11.1); NUCLEATED RBCS 0 /100WBC; PLATELET COUNT* 260 thou/uL (150-400); RBC 4.23 mil/uL (4.20-5.00); RDW-CV 14.2 % (10.5-14.5)
[2020-07-21 06:24] LABS: ALBUMIN 2.7 g/dL (3.4-5.0); CREATININE 1.1 mg/dL (0.6-1.3); POTASSIUM 4.2 mmol/L (3.5-5.1); TOTAL BILIRUBIN 0.4 mg/dL (<0.1-1.0); TOTAL PROTEIN 6.6 g/dL (6.4-8.2)
[2020-07-21 08:00] VITALS: BP 117/66
[2020-07-21 12:00] VITALS: BP 103/59
[2020-07-21 16:00] VITALS: BP 143/74
[2020-07-21 20:00] VITALS: BP 155/101
[2020-07-22] VITALS: BP 170/107
[2020-07-22 04:53] VITALS: BP 148/80
[2020-07-22 06:23] LABS: ABSOLUTE LYMPHOCYTES 1.1 thou/uL (0.8-5.3); ABSOLUTE MONOCYTES 0.7 thou/uL (0.0-1.2); ABSOLUTE NEUTROPHILS 11.8 thou/uL (1.6-8.1); HEMATOCRIT 37.1 % (37.0-47.0); HEMOGLOBIN 12.3 gm/dL (12.0-15.0); LYMPHOCYTES 7.9 %; MCH 28.8 pg (26.0-34.0); MCHC 33.1 g/dL (28.0-37.0); MONOCYTES 4.8 %; MPV 7.7 fl. (7.2-11.1); NUCLEATED RBCS 0 /100WBC; PLATELET COUNT* 276 thou/uL (150-400); POLYS 87.3 %; RBC 4.26 mil/uL (4.20-5.00); RDW-CV 14.1 % (10.5-14.5); WBC 13.5 thou/uL (4.0-11.0)
[2020-07-22 06:38] LABS: ALBUMIN 2.7 g/dL (3.4-5.0); CALCIUM 10.3 mg/dL (8.5-10.1); CREATININE 0.9 mg/dL (0.6-1.3); TOTAL BILIRUBIN 0.4 mg/dL (<0.1-1.0); TOTAL PROTEIN 6.6 g/dL (6.4-8.2)
[2020-07-22 08:00] VITALS: BP 150/96
[2020-07-22] MEDS ORDERED: TESSALON PERLE100 MG PO ×2 (09:59→10:21)
[2020-07-22] MEDS ORDERED: POTASSIUM20 PO ×2 (09:59→10:21)
[2020-07-22] MEDS ORDERED: AZITHROMYCIN500 MG PO (10:06)
[2020-07-22] MEDS ORDERED: PREDNISONE 10 M10 MG PO (10:06)
[2020-07-22] MEDS ORDERED: AMOX TR-K CLV1 EAC4 PO (10:06)
[2020-07-22 12:00] VITALS: BP 160/82
[2020-07-22 13:19] VITALS: BP 160/82
== END 2020-07-22 14:15 | disposition home or self-care (01) | DRG 177 ==
LOC: M.ERS 12:31 → M.TBA-ER 13:49 → M.2W 13:49
PROVIDERS: Emergency Medicine Emergency Medical Services; ADMIT Internal Medicine; ATTEND Internal Medicine
DX: U07.1 COVID-19 (principal); J69.0 Pneumonitis due to inhalation of food and vomit; J96.01 Acute respiratory failure with hypoxia; J12.82 Pneumonia due to coronavirus disease 2019; Z68.41 Body mass index [BMI] 40.0-44.9, adult; N17.9 Acute kidney failure, unspecified; D72.829 Elevated white blood cell count, unspecified; S31.819A Unspecified open wound of right buttock, initial encounter; X58.XXXA Exposure to other specified factors, initial encounter; R73.9 Hyperglycemia, unspecified; K57.90 Diverticulosis of intestine, part unspecified, without perforation or abscess without bleeding; F32.9 Major depressive disorder, single episode, unspecified; G25.81 Restless legs syndrome; M19.90 Unspecified osteoarthritis, unspecified site; M79.7 Fibromyalgia; E66.01 Morbid (severe) obesity due to excess calories; I10 Essential (primary) hypertension; E78.5 Hyperlipidemia, unspecified; G89.29 Other chronic pain; M54.9 Dorsalgia, unspecified; I95.9 Hypotension, unspecified; I48.91 Unspecified atrial fibrillation; Z90.710 Acquired absence of both cervix and uterus; Z90.49 Acquired absence of other specified parts of digestive tract; Z86.718 Personal history of other venous thrombosis and embolism; Z86.711 Personal history of pulmonary embolism; Y93.89 Activity, other specified; Y92.89 Other specified places as the place of occurrence of the external cause; Y99.8 Other external cause status; Z88.8 Allergy status to other drugs, medicaments and biological substances; Z79.01 Long term (current) use of anticoagulants; Z79.899 Other long term (current) drug therapy; Z93.3 Colostomy status

== ENCOUNTER → 2020-08-03 | Outpatient (CLI) | payer MEDICARE ==
[~2020-08-03] MED LIST changes: +AMOX TR-K CLV1 EAC4 PO; +AZITHROMYCIN500 MG PO; +POTASSIUM20 PO; +PREDNISONE 10 M10 MG PO; +TESSALON PERLE100 MG PO
== END ==
LOC: M.MRI 11:30
DX: M51.37 Other intervertebral disc degeneration, lumbosacral region (principal); M54.31 Sciatica, right side; M41.86 Other forms of scoliosis, lumbar region; M25.78 Osteophyte, vertebrae; M47.816 Spondylosis without myelopathy or radiculopathy, lumbar region

== ENCOUNTER → 2020-08-15 | Outpatient (CLI) | payer MEDICARE ==
[~2020-08-15] MED LIST changes: +PLAVIX 75 MG TA75 MG PO
== END ==
LOC: M.PC 08:47
PROVIDERS: ATTEND Physical Medicine & Rehabilitation
DX: M51.36 Other intervertebral disc degeneration, lumbar region (principal); M48.061 Spinal stenosis, lumbar region without neurogenic claudication; M41.86 Other forms of scoliosis, lumbar region; M47.816 Spondylosis without myelopathy or radiculopathy, lumbar region; M17.11 Unilateral primary osteoarthritis, right knee; M79.10 Myalgia, unspecified site

== ENCOUNTER 2020-11-13 12:28 | Emergency (ER) | payer MEDICARE ==
[~2020-11-13] VITALS: Ht 167.6 cm; Wt 113.4 kg
[2020-11-13 13:06] LABS: ABSOLUTE BASOPHILS 0.1 thou/uL (0.0-0.2); ABSOLUTE EOSINOPHILS 0.2 thou/uL (0.0-0.7); ABSOLUTE LYMPHOCYTES 1.9 thou/uL (0.8-5.3); ABSOLUTE MONOCYTES 0.5 thou/uL (0.0-1.2); ABSOLUTE NEUTROPHILS 3.9 thou/uL (1.6-8.1); EOSINOPHILS 2.8 %; HEMATOCRIT 40.5 % (37.0-47.0); HEMOGLOBIN 13.7 gm/dL (12.0-15.0); LYMPHOCYTES 28.6 %; MCH 30.5 pg (26.0-34.0); MCHC 33.9 g/dL (28.0-37.0); MCV 89.9 fL (80.0-100.0); MONOCYTES 8.1 %; MPV 7.9 fl. (7.2-11.1); NUCLEATED RBCS 0 /100WBC; PLATELET COUNT* 201 thou/uL (150-400); POLYS 59.5 %; RDW-CV 14.8 % (10.5-14.5); WBC 6.5 thou/uL (4.0-11.0)
[2020-11-13 13:27] LABS: ANION GAP 7 mmol/L (7-16); BUN 17 mg/dL (7-18); CALCIUM 9.5 mg/dL (8.5-10.1); CHLORIDE 107 mmol/L (98-107); CO2 29 mmol/L (21-32); CREATININE 0.9 mg/dL (0.6-1.3); GLUCOSE 95 mg/dL (70-99); SODIUM 143 mmol/L (136-145)
[2020-11-13 13:31] LABS: ALBUMIN 3.3 g/dL (3.4-5.0); ALKALINE PHOSPHATASE 103 U/L (46-116); CK-MB MASS < 0.5 ng/mL (<0.5-3.6); LIPASE 98 U/L (73-393); MAGNESIUM 1.8 mg/dL (1.8-2.4); NT-PRO BRAIN NAT PEPTIDE 978 pg/mL (<300); SGOT 14 U/L (15-37); SGPT 13 U/L (30-65); TOTAL BILIRUBIN 0.5 mg/dL (<0.1-1.0); TOTAL PROTEIN 6.7 g/dL (6.4-8.2)
[2020-11-13 14:37] VITALS: BP 110/86
--- NOTE | 2020-11-13 16:41 | EKG ---
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1945 Requested By: Jr Pro Order Number: [id number] MD: Jaiden Nino Measurements Intervals [place] Rate: 79 P: [place]: QRS: 81 QRSD: 99 T: -8 QT: 380 QTc: 436 Interpretive Statements Atrial fibrillation Borderline right axis deviation Borderline T abnormalities, inferior leads Compared to ECG 07/19/2020 13:14:52 T-wave abnormality now present Electronically Signed On 11-13-2020 16:41:18 CDT by Jaiden Nino [email or web address] <ELECTRONICALLY SIGNED> By: Jaiden Nino MD, FACC 11/13/20 1641 1241 1241 Jaiden Nino MD, [facility] /EPI
== END 2020-11-13 14:40 | disposition home or self-care (01) ==
LOC: M.ERS 12:28
PROVIDERS: Emergency Medicine
DX: R07.89 Other chest pain (principal); Z88.8 Allergy status to other drugs, medicaments and biological substances; M41.9 Scoliosis, unspecified; I10 Essential (primary) hypertension; G25.81 Restless legs syndrome; M19.90 Unspecified osteoarthritis, unspecified site; M79.7 Fibromyalgia; I48.91 Unspecified atrial fibrillation; Z90.710 Acquired absence of both cervix and uterus; Z90.49 Acquired absence of other specified parts of digestive tract; Z86.718 Personal history of other venous thrombosis and embolism